=== PATIENT | male | born 1960 | race Caucasian/White ===

== ENCOUNTER 2017-01-04 09:51 | Inpatient (IN) | payer MEDICARE, BC ==
[2017-01-04] MEDS ORDERED: SODIUM CHLORIDE 0.9% 1,000 ML IV STA ×2 (10:04)
[2017-01-04] MEDS ORDERED: SODIUM CHLORIDE 0.9% 500 ML IV STA (10:04)
[2017-01-04] MEDS ORDERED: IPRATROPIUM-ALBUTEROL 3 ML NEB INHALATION STA (10:10)
[2017-01-04] MEDS ORDERED: KETOROLAC 30 MG/ML 1 ML VIAL IVP STA (10:10)
[2017-01-04] MEDS ORDERED: ACETAMINOPHEN IV (For NPO) 1,000 MG in EMPTY BAG 1 BAG IVPB STA (10:10)
--- NOTE | 2017-01-04 10:29 | ED ---
General Adult HPI - General Chief complaint: Chest Pain Stated complaint: johanne, rt side, chest pain Time Seen by Provider: 01/04/17 09:58 Source: patient, RN notes reviewed, old records reviewed Mode of arrival: ambulatory Limitations: no limitations - History of Present Illness Initial comments: This is a 56-year-old male here for evaluation shows of breath cough and congestion. Chest pain with deep breath and shortness of breath. Patient has a medical history significant for diabetes hypertension, patient coming in the ER for evaluation. Also noted to be febrile. Patient states she's felt warm with chills starting last night into today. Symptoms are worsening charas of breath and coughing and drinking increasing. No modifying factors for symptoms at home. No recent hospitalizations - Related Data Home Medications Medication Instructions Recorded Confirmed Baclofen [Lioresal] 10 mg PO TID PRN 06/12/16 01/04/17 Lisinopril 40 mg PO DAILY 06/12/16 01/04/17 Kenton-3 Fatty Acids [K[place]-3] 2,000 mg PO DAILY 06/12/16 01/04/17 Omeprazole 20 mg PO DAILY PRN 06/12/16 01/04/17 Simvastatin [Zocor] 20 mg PO HS 06/12/16 01/04/17 clonazePAM [KlonoPIN] 0.5 mg PO BID PRN 06/12/16 01/04/17 metFORMIN HCL [Glucophage] 500 mg PO DAILY 06/12/16 01/04/17 Allergies Allergy/AdvReac Type Severity Reaction Status Date / Time nitroglycerin AdvReac Rapid Verified 01/04/17 10:05 [From Nitrostat] Heart Rate Review of Systems ROS Statement: Those systems with pertinent positive or pertinent negative responses have been documented in the HPI. ROS Other: All systems not noted in ROS Statement are negative. Past Medical History Past Medical History: Diabetes Mellitus, GERD/Reflux, Hyperlipidemia, Hypertension, Sleep Apnea/CPAP/BIPAP Additional Past Medical History / Comment(s): recently having dysphagia to solid foods-fine now, uses CPAP, back problems History of Any Multi-Drug Resistant Organisms: None Reported Past Surgical History: Hernia Repair, Orthopedic Surgery Additional Past Surgical History / Comment(s): arthroscopy knee, EGD, colonoscopy Past Anesthesia/Blood Transfusion Reactions: No Reported Reaction Past Psychological History: Panic Disorder Smoking Status: Former smoker Past Alcohol Use History: None Reported Additional Past Alcohol Use History / Comment(s): quit smoking 20 yrs ago, smoked 1ppd for 20 yrs. Past Drug Use History: None Reported - Past Family History Mother Family Medical History: Cancer Father Family Medical History: Cancer General Exam Limitations: no limitations General appearance: alert, in no apparent distress, anxious Head exam: Present: atraumatic, normocephalic, normal inspection Eye exam: Present: normal appearance, PERRL, EOMI. Absent: scleral icterus, conjunctival injection, periorbital swelling ENT exam: Present: normal exam, mucous membranes moist Neck exam: Present: normal inspection. Absent: tenderness, meningismus, lymphadenopathy Respiratory exam: Present: normal lung sounds bilaterally, rhonchi, decreased breath sounds, prolonged expiratory. Absent: respiratory distress, wheezes, rales, stridor Cardiovascular Exam: Present: normal rhythm, tachycardia, normal heart sounds. Absent: systolic murmur, diastolic murmur, rubs, gallop, clicks GI/Abdominal exam: Present: soft, normal bowel sounds. Absent: distended, tenderness, guarding, rebound, rigid Extremities exam: Present: normal inspection, full ROM, normal capillary refill. Absent: tenderness, pedal edema, joint swelling, calf tenderness Back exam: Present: normal inspection Neurological exam: Present: alert, oriented X3, CN II-XII intact Psychiatric exam: Present: normal affect, normal mood Skin exam: Present: warm, dry, intact, normal color. Absent: rash Course Vital Signs 01/04/17 01/04/17 01/04/17 09:59 10:47 10:54 Temperature 100.6 F H Pulse Rate 129 H 121 H 120 H Respiratory 18 Rate Blood Pressure 119/78 O2 Sat by Pulse 96 Oximetry - Reevaluation(s) Reevaluation #1: 01/04/17 12:08 Was symptomatically therapy patient is much improved EKG Findings - EKG Comments: EKG Findings:: EKG shows sinus tachycardia rate of 127, [place] 140, QRS 80, QTC 4:30 Medical Decision Making - Medical Decision Making 56 year with fever cough congestion and shortness of breath. Positive pneumonia , patient be admitted for IV antibiotics and monitoring of respiratory status and fever control. IV hydration and resuscitation - Lab Data Result diagrams: 01/04/17 10:25 01/04/17 10:25 Lab Results 01/04/17 01/04/17 01/04/17 Range/Units 10:25 10:25 10:25 WBC 11.1 H (3.8-10.6) k/uL RBC 5.14 (4.30-5.90) m/uL Hgb 14.6 (13.0-17.5) gm/dL Hct 42.9 (39.0-53.0) % MCV 83.5 (80.0-100.0) fL MCH 28.4 (25.0-35.0) pg MCHC 34.0 (31.0-37.0) g/dL RDW 12.4 (11.5-15.5) % Plt Count 252 (150-450) k/uL Neutrophils % 75 % Lymphocytes % 14 % Monocytes % 6 % Eosinophils % 2 % Basophils % 1 % Neutrophils # 8.4 H (1.3-7.7) k/uL Lymphocytes # 1.6 (1.0-4.8) k/uL Monocytes # 0.7 (0-1.0) k/uL Eosinophils # 0.2 (0-0.7) k/uL Basophils # 0.1 (0-0.2) k/uL PT (9.0-12.0) sec INR (<1.1) APTT (22.0-30.0) sec D-Dimer (<0.60) mg/L FEU Sodium 141 (137-145) mmol/L Potassium 4.0 (3.5-5.1) mmol/L Chloride 102 (98-107) mmol/L Carbon Dioxide 24 (22-30) mmol/L Anion Gap 15 mmol/L BUN 13 (9-20) mg/dL Creatinine 0.96 (0.66-1.25) mg/dL Est GFR (MDRD) Af Amer >60 (>60 ml/min/1.73 sqM) Est GFR (MDRD) Non-Af >60 (>60 ml/min/1.73 sqM) Glucose 143 H (74-99) mg/dL Calcium 9.2 (8.4-10.2) mg/dL Magnesium 1.7 (1.6-2.3) mg/dL Total Bilirubin 1.1 (0.2-1.3) mg/dL AST 29 (17-59) U/L ALT 48 (21-72) U/L Alkaline Phosphatase 98 (38-126) U/L Total Creatine Kinase 60 (55-170) U/L CK-MB (CK-2) <0.2 (0.0-2.4) ng/mL CK-MB (CK-2) Rel Index Troponin I <0.012 (0.000-0.034) ng/mL NT-Pro-B Natriuret Pep pg/mL Total Protein 7.6 (6.3-8.2) g/dL Albumin 4.1 (3.5-5.0) g/dL Influenza Type A RNA (Not Detectd) Influenza Type B (PCR) (Not Detectd) 01/04/17 01/04/17 01/04/17 Range/Units 10:25 10:25 10:25 WBC (3.8-10.6) k/uL RBC (4.30-5.90) m/uL Hgb (13.0-17.5) gm/dL Hct (39.0-53.0) % MCV (80.0-100.0) fL MCH (25.0-35.0) pg MCHC (31.0-37.0) g/dL RDW (11.5-15.5) % Plt Count (150-450) k/uL Neutrophils % % Lymphocytes % % Monocytes % % Eosinophils % % Basophils % % Neutrophils # (1.3-7.7) k/uL Lymphocytes # (1.0-4.8) k/uL Monocytes # (0-1.0) k/uL Eosinophils # (0-0.7) k/uL Basophils # (0-0.2) k/uL PT 11.3 (9.0-12.0) sec INR 1.1 (<1.1) APTT 22.6 (22.0-30.0) sec D-Dimer 5.40 H (<0.60) mg/L FEU Sodium (137-145) mmol/L Potassium (3.5-5.1) mmol/L Chloride (98-107) mmol/L Carbon Dioxide (22-30) mmol/L Anion Gap mmol/L BUN (9-20) mg/dL Creatinine (0.66-1.25) mg/dL Est GFR (MDRD) Af Amer (>60 ml/min/1.73 sqM) Est GFR (MDRD) Non-Af (>60 ml/min/1.73 sqM) Glucose (74-99) mg/dL Calcium (8.4-10.2) mg/dL Magnesium (1.6-2.3) mg/dL Total Bilirubin (0.2-1.3) mg/dL AST (17-59) U/L ALT (21-72) U/L Alkaline Phosphatase (38-126) U/L Total Creatine Kinase (55-170) U/L CK-MB (CK-2) (0.0-2.4) ng/mL CK-MB (CK-2) Rel Index Troponin I (0.000-0.034) ng/mL NT-Pro-B Natriuret Pep 59 pg/mL Total Protein (6.3-8.2) g/dL Albumin (3.5-5.0) g/dL Influenza Type A RNA Not Detected (Not Detectd) Influenza Type B (PCR) Not Detected (Not Detectd) - Radiology Data Radiology results: report reviewed (Chest x-ray and CT a is negative for PE positive for pneumonia), image reviewed Disposition Clinical Impression: Atypical chest pain, Community acquired pneumonia, Fever Disposition: ADMITTED IP TO THIS HOSP Condition: Fair Referrals: Jazmin Marquis DO [Primary Care Provider] - 1-2 days
[2017-01-04 10:37] LABS: Basophils # (A) 0.1 k/uL (0-0.2); Basophils % (A) 1 %; CH 28.9; CHCM 34.7; Eosinophils # (A) 0.2 k/uL (0-0.7); Eosinophils % (A) 2 %; HCT 42.9 % (39.0-53.0); HDW 2.56; HGB 14.6 gm/dL (13.0-17.5); Luc % (Auto) 2; Lymphocytes # (A) 1.6 k/uL (1.0-4.8); Lymphocytes % (A) 14 %; MCH 28.4 pg (25.0-35.0); MCV 83.5 fL (80.0-100.0); Mean Platelet Volume 6.7; Monocytes # (A) 0.7 k/uL (0-1.0); Monocytes % (A) 6 %; Neutrophils # (A) 8.4 k/uL (1.3-7.7); Neutrophils % (A) 75 %; RBC 5.14 m/uL (4.30-5.90); RDW 12.4 % (11.5-15.5); WBC 11.1 k/uL (3.8-10.6); WBC (Perox) 11.57
[2017-01-04 10:48] LABS: ALT 48 U/L (21-72); AST 29 U/L (17-59); Alkaline Phosphatase 98 U/L (38-126); Anion Gap 15 mmol/L; Blood Urea Nitrogen 13 mg/dL (9-20); Calcium 9.2 mg/dL (8.4-10.2); Carbon Dioxide 24 mmol/L (22-30); Chloride 102 mmol/L (98-107); Glucose 143 mg/dL (74-99); Magnesium 1.7 mg/dL (1.6-2.3); Non-African American GFR(MDRD) >60 (>60 ml/min/1.73 sqM); Sodium 141 mmol/L (137-145); Total Bilirubin 1.1 mg/dL (0.2-1.3); Total Protein 7.6 g/dL (6.3-8.2)
--- NOTE | 2017-01-04 10:54 | XR ---
EXAMINATION TYPE: XR chest 2V DATE OF EXAM: 01/04/2017 10:44 AM COMPARISON: NONE HISTORY: Difficulty breathing, right-sided chest pain TECHNIQUE: Frontal and lateral views of the chest are obtained. FINDINGS: There is blunting of the right costophrenic angle. No pneumothorax. Cardiomediastinal silh ouette within normal limits. Left lung is clear. IMPRESSION: Findings may represent sympathetic effusion and associated atelectasis on the right, cor relate to exclude pneumonia, follow-up recommended
[2017-01-04 10:57] LABS: INR 1.1 (<1.1)
[2017-01-04 10:58] LABS: Creatine Kinase 60 U/L (55-170); Partial Thromboplastin Time 22.6 sec (22.0-30.0); Prothrombin Time 11.3 sec (9.0-12.0)
[2017-01-04] MEDS ORDERED: RX INFO: IV CONTRAST WAS GIVEN 1 EACH MISC MISCELLANE PRN (10:59)
[2017-01-04 11:11] LABS: Creatine Kinase MB <0.2 ng/mL (0.0-2.4); Troponin I <0.012 ng/mL (0.000-0.034)
--- NOTE | 2017-01-04 11:54 | CT ---
EXAMINATION TYPE: CT angio chest DATE OF EXAM: 01/04/2017 11:39 AM COMPARISON: Chest x-ray same date HISTORY: PE, Right sided chest pain, Hemoptysis CT DLP: 410.40 mGycm Automated exposure control for dose reduction was used. CONTRAST: CTA scan of the thorax is performed with IV Contrast, patient injected with 100 ml mL of Omnipaque 35 0, pulmonary embolism protocol. MIP images are created and reviewed. 3D reconstructed images are cr eated on an independent workstation and reviewed. FINDINGS: LUNGS: There are some air bronchograms present in the posterior costophrenic angle on the right and a long the right hemidiaphragm. No pleural or pericardial effusion. AORTA: Aortic root measures 3.7 cm, borderline increased in size, no evident dissection MEDIASTINUM: The contrast bolus is suboptimal to exclude pulmonary embolism. Retrocaval pretracheal n ode is enlarged as is right hilar nodes and may be reactive. OTHER: The liver shows low attenuation likely due to fatty infiltration. Left lobe is somewhat heter ogeneous in density, there may be underlying mass or abscess. IMPRESSION: FINDINGS NOTED ON PATIENT'S PLAIN FILM MAY REPRESENT BASILAR ATELECTASIS, CORRELATE FOR POSSIBLE P NEUMONIA. SUBOPTIMAL EXAM TO EXCLUDE PULMONARY EMBOLISM. Abnormal left lobe of the liver is suspected , correlate for possible abscess or mass.
[2017-01-04] MEDS ORDERED: PNEUMONIA PROTOCOL UTILIZED 1 EACH MISC PO PRN (12:06)
[2017-01-04] MEDS ORDERED: LEVOFLOXACIN 750MG-D5W PMX 750 MG in DEXTROSE/WATER 1 150ML.BAG IVPB STA (12:06)
[2017-01-04] MEDS ORDERED: PIPERACILLIN-TAZOBACTAM 3.375 GM in DEXTROSE/WATER 1 50ML.BAG IVPB STA (12:06)
[2017-01-04] MEDS ORDERED: ONDANSETRON 4 MG/2 ML VIAL IVP PRN (13:08)
[2017-01-04] MEDS ORDERED: IPRATROPIUM-ALBUTEROL 3 ML NEB INHALATION PRN (13:08)
[2017-01-04] MEDS ORDERED: MORPHINE SULFATE 2 MG/ML SYRINGE IVP PRN (13:08)
[2017-01-04] MEDS ORDERED: ACETAMINOPHEN TAB 325 MG TAB PO PRN (13:08)
[2017-01-04] MEDS ORDERED: BACLOFEN 10 MG TAB PO PRN (13:09)
[2017-01-04] MEDS ORDERED: Magnesium Replacement Protocol 1 EACH MISC MISCELLANE PRN (13:09)
[2017-01-04] MEDS ORDERED: Potassium Replacement Protocol 1 EACH MISC MISCELLANE PRN (13:09)
[2017-01-04] MEDS ORDERED: PANTOPRAZOLE 40 MG TABLET PO PRN (13:09)
[2017-01-04] MEDS ORDERED: ATORVASTATIN 10 MG TAB PO SCH (13:15)
[2017-01-04 13:51] VITALS: BMI 32.3
--- NOTE | 2017-01-04 14:42 | P.HPIM ---
History of Present Illness H&P Date: 01/04/17 Chief Complaint: Right-sided pain This is a 56-year-old gentleman with past medical history noted below who presented to the emergency room with a right-sided pain. Patient said that his pain is mostly in the right upper quadrant and right flank area. He said that the pain started all of a sudden this morning. He is rating his pain as 10 out of 10 in severity. He said that the pain was associated with shortness of breath and diaphoresis. He was very concerned that he called EMS. He said that he was doing fairly well prior. He reports having normal bowel movements and good appetite. He denies any chest pain in particular. He said this pain is mostly on the right side and right flank area. He was evaluated in the emergency room and was noted to have a significantly elevated d-dimer. He was also found to be septic on presentation. CT angiogram was ordered but unfortunately was a suboptimal study to rule out pulmonary emboli. There is a concern about an attenuation in the liver suspecting possible abscess. Patient was admitted to the hospital for further evaluation. Review of Systems Review of system: 14 points review of systems were obtained and were negative except to what were mentioned in the HPI. Past Medical History Past Medical History: Diabetes Mellitus, GERD/Reflux, Hyperlipidemia, Hypertension, Sleep Apnea/CPAP/BIPAP Additional Past Medical History / Comment(s): recently having dysphagia to solid foods-fine now, uses CPAP, back problems History of Any Multi-Drug Resistant Organisms: None Reported Past Surgical History: Hernia Repair, Orthopedic Surgery Additional Past Surgical History / Comment(s): arthroscopy knee, EGD, colonoscopy Past Anesthesia/Blood Transfusion Reactions: No Reported Reaction Past Psychological History: Panic Disorder Smoking Status: Former smoker Past Alcohol Use History: None Reported Additional Past Alcohol Use History / Comment(s): quit smoking 20 yrs ago, smoked 1ppd for 20 yrs. Past Drug Use History: None Reported - Past Family History Mother Family Medical History: Cancer Father Family Medical History: Cancer Medications and Allergies Home Medications Medication Instructions Recorded Confirmed Type Baclofen [Lioresal] 10 mg PO TID PRN 06/12/16 01/04/17 History Lisinopril 40 mg PO DAILY 06/12/16 01/04/17 History [place]-3 Fatty Acids [Av[place]-3] 2,000 mg PO DAILY 06/12/16 01/04/17 History Omeprazole 20 mg PO DAILY PRN 06/12/16 01/04/17 History Simvastatin [Zocor] 20 mg PO Q72H 06/12/16 01/04/17 History clonazePAM [KlonoPIN] 0.5 mg PO BID PRN 06/12/16 01/04/17 History metFORMIN HCL [Glucophage] 500 mg PO DAILY 06/12/16 01/04/17 History Desvenlafaxine Succinate [Pristiq 50 mg PO DAILY 01/04/17 01/04/17 History ER] Ergocalciferol (Vitamin D2) 50,000 unit PO Q28D 01/04/17 01/04/17 History [Vitamin D2] Tamsulosin HCl [Flomax] 0.4 mg PO DAILY 01/04/17 01/04/17 History Allergies Allergy/AdvReac Type Severity Reaction Status Date / Time nitroglycerin AdvReac Rapid Verified 01/04/17 12:38 [From Nitrostat] Heart Rate Physical Exam Vitals: Intake and Output 01/03/17 01/04/17 01/04/17 22:59 06:59 14:59 Other: Weight 102.058 kg Patient Weight 01/05/17 06:59 Weight 102.058 kg General: The patient is awake and alert, in no distress, and does not appear acutely ill. Eye: extra-ocular movements are intact; there is normal conjunctiva bilaterally. . Neck: The neck is supple, there is no tenderness or JVD. Cardiovascular: Normal S1-S2, no S3-S4, no murmurs. Respiratory: Lungs clear to auscultation bilaterally with no wheezes rhonchi or rales. Gastrointestinal: Abdomen is soft, nontender, nondistended, with no organomegaly. . Musculoskeletal: Normal ROM, no tenderness, There is no pedal edema. Neurological: There are no obvious motor or sensory deficits. Speech is normal. Skin: Skin is warm and dry and no rashes or lesions are noted. Results CBC & Chem 7: 01/04/17 10:25 01/04/17 10:25 Thrombosis Risk Factor Assmnt - Choose All That Apply Each Factor Represents 1 point: Age 41-60 years Other Risk Factors: No Other congenital or acquired thrombophilia - If yes, enter type in comment: No Thrombosis Risk Factor Assessment Total Risk Factor Score: 1 Thrombosis Risk Factor Assessment Level: Low Risk Assessment and Plan Plan: 1. Elevated d-dimer: CT angiogram was suboptimal study to rule out PE. I would obtain VQ scan and bilateral Doppler of the lower extremity to rule out any DVT 2. Suspected liver abscess on computed tomography scan of the chest: I would obtain liver ultrasound for further evaluation. 3. Sepsis on presentation: With fever and tachycardia. Concern about intra- abdominal source of infection. Continue broad spectrum antibiotic with Zosyn and Levaquin for now. Awaiting blood culture. Continue IV fluid hydration. 4. History of chronic cholecystitis with abnormal HIDA scan in June 2016 5. Essential hypertension: Blood pressure well-controlled 6. Type 2 diabetes mellitus: Hold metformin and continue sliding scale insulin 7. Mixed hyperlipidemia 8. DVT prophylaxis Continue supportive care otherwise. IV fluid hydration. Pain medication and antiemetic as needed. Repeat lab work in the morning. Appreciate cognos consultant's recommendations.
[2017-01-04] MEDS: IPRATROPIUM-ALBUTEROL 3 ML NEB INHALATION SCH ×2 (15:06→19:02)
--- NOTE | 2017-01-04 15:12 | US ---
EXAMINATION TYPE: US venous doppler duplex LE BI DATE OF EXAM: 01/04/2017 2:52 PM COMPARISON: NONE CLINICAL HISTORY: dvt. SOB SIDE PERFORMED: Bilateral VESSELS IMAGED: External Iliac Vein (EIV) Common Femoral Vein Deep Femoral Vein Greater Saphenous Vein * Femoral Vein Popliteal Vein Small Saphenous Vein * Proximal Calf Veins (* superficial vessels) TECHNOLOGIST IMPRESSION: Right Leg: No evidence of DVT Left Leg: No evidence of DVT Satisfactory color flow, phasicity, compressibility is seen in the bilateral lower extremities at the above levels. IMPRESSION: No ultrasound evidence for acute DVT in either lower extremity.
--- NOTE | 2017-01-04 16:36 | NM ---
EXAMINATION TYPE: NM pul vent and perfuse DATE OF EXAM: 01/04/2017 4:17 PM COMPARISON: CTA chest from earlier today. HISTORY: Shortness of breath rule out pulmonary embolism TECHNIQUE: Utilizing inhalation of 70.9 mCi Tc 99m DTPA aerosol and intravenous injection of 5.39 mC i of Tc 99m MAA, ventilation and perfusion images are acquired post injection in multiple projections . FINDINGS: Normal radiotracer distribution is noted in the lungs. There is no evidence of mismatched defects. IMPRESSION: No scintigraphic evidence for pulmonary embolism.
[2017-01-04] MEDS ORDERED: INSULIN LISPRO (humaLOG) 300 UNIT/3 ML VIAL SQ SCH (17:30)
[2017-01-04 17:56] LABS: Glucose,Whole Blood 184 mg/dL (75-99)
[2017-01-04] MEDS: INSULIN LISPRO (humaLOG) 300 UNIT/3 ML VIAL SQ SCH ×2 (18:04→20:40)
[2017-01-04] MEDS: SODIUM CHLORIDE 0.9% 1,000 ML IV SCH ×2 (18:06→20:37)
[2017-01-04 19:38] LABS: Glucose,Whole Blood 177 mg/dL (75-99)
[2017-01-04 20:25] LABS: Appearance,Urine Clear (Clear); Bilirubin,Urine Negative (Negative); Glucose,Urine (UA) Negative (Negative); Ketones,Urine Negative (Negative); Leukocyte Esterase,Urine Negative (Negative); Nitrite,Urine Negative (Negative); Protein,Urine Negative (Negative); Specific Gravity,Urine 1.016 (1.001-1.035); UA Billing (MACRO vs. MICRO) CHEM; Urobilinogen,Urine <2.0 mg/dL (<2.0)
[2017-01-05 07:13] LABS: Glucose,Whole Blood 122 mg/dL (75-99)
[2017-01-05] MEDS: IPRATROPIUM-ALBUTEROL 3 ML NEB INHALATION SCH ×4 (08:10→19:40)
[2017-01-05] MEDS: INSULIN LISPRO (humaLOG) 300 UNIT/3 ML VIAL SQ SCH ×4 (08:32→20:51)
[2017-01-05] MEDS: SODIUM CHLORIDE 0.9% 1,000 ML IV SCH ×2 (08:33→10:16)
[2017-01-05] MEDS: DESVENLAFAXINE SUCCINATE 50 MG TAB.ER.24H PO SCH (08:33)
[2017-01-05] MEDS: LISINOPRIL 20 MG TAB PO SCH (08:34)
[2017-01-05] MEDS: TAMSULOSIN 0.4 MG CAP.ER.24H PO SCH (08:34)
--- NOTE | 2017-01-05 08:42 | XR ---
EXAMINATION TYPE: XR chest 2V DATE OF EXAM: 01/05/2017 8:05 AM COMPARISON: 01/04/2017 HISTORY: 56-year-old male follow-up pneumonia TECHNIQUE: Frontal and lateral views FINDINGS: Heart is normal size. Patchy right basilar opacity remains and shows minimal improvement. Strandy lef t basilar atelectasis. Trace right-sided effusion. IMPRESSION: Trace right pleural effusion with minimal improvement in adjacent atelectasis and/or infiltrate.
[2017-01-05] MEDS: ENOXAPARIN 40 MG/0.4 ML SYRINGE SQ SCH (09:16)
[2017-01-05] MEDS: clonazePAM 0.5 MG TAB PO PRN ×2 (10:20→20:48)
[2017-01-05 10:24] LABS: Basophils # (A) 0.1 k/uL (0-0.2); Basophils % (A) 1 %; CH 28.5; CHCM 32.9; Eosinophils # (A) 0.2 k/uL (0-0.7); Eosinophils % (A) 2 %; HGB 14.4 gm/dL (13.0-17.5); Luc # (Auto) 0.17; Luc % (Auto) 2; Lymphocytes % (A) 11 %; MCH 28.4 pg (25.0-35.0); MCHC 32.7 g/dL (31.0-37.0); Monocytes # (A) 0.5 k/uL (0-1.0); Monocytes % (A) 5 %; Neutrophils # (A) 7.2 k/uL (1.3-7.7); Neutrophils % (A) 79 %; RBC 5.06 m/uL (4.30-5.90); RDW 12.2 % (11.5-15.5); WBC 9.1 k/uL (3.8-10.6); WBC (Perox) 9.63
[2017-01-05 10:35] LABS: Anion Gap 12 mmol/L; Blood Urea Nitrogen 10 mg/dL (9-20); Calcium 8.9 mg/dL (8.4-10.2); Carbon Dioxide 25 mmol/L (22-30); Chloride 108 mmol/L (98-107); Glucose 153 mg/dL (74-99); Non-African American GFR(MDRD) >60 (>60 ml/min/1.73 sqM); Potassium 4.4 mmol/L (3.5-5.1); Sodium 145 mmol/L (137-145)
--- NOTE | 2017-01-05 11:24 | US ---
EXAMINATION TYPE: US liver DATE OF EXAM: 01/05/2017 7:57 AM COMPARISON: Correlation CT 01/04/2017 CLINICAL HISTORY: 56-year-old male with right upper quadrant pain, abscess?. TECHNIQUE: Multiple sonographic images of the right upper quadrant are obtained. FINDINGS: Liver Length: 17.8 cm Gallbladder Wall: 0.2 cm CBD: 0.5 cm Right Kidney: 12.2 x 4.6 x 5.4 cm TECHNOLOGIST IMPRESSION: Pancreas: Obscured by extensive overlying bowel gas Liver: Mildly enlarged, echogenic, and attenuating. There is an irregular mass with some internal vas cularity in the left hepatic lobe measuring up to 7.3 cm. There is a second mass superior to the gall bladder measuring 1.3 cm. Some small areas of hypoechogenicity along the gallbladder fossa suspected to represent focal fatty sparing. Gallbladder: No abnormal gallbladder distention, wall thickening, pericholecystic fluid, or shadowin g calculi. Evidence for sonographic Flannery's sign: no CBD: Within normal limits. IMPRESSION: 1. Hepatomegaly and marked hepatic steatosis. 2. Ultrasound findings are more suggestive of a 7.3 cm left liver lobe mass rather than abscess with differential considerations including HCC and metastatic disease. 3. A second smaller 1.3 cm liver mass superior to the gallbladder.
[2017-01-05 11:39] LABS: Hemoglobin A1C 6.5 % (4.2-6.1)
--- NOTE | 2017-01-05 11:42 | P.PN ---
Subjective Is a 56-year-old who presented with right-sided pain in the right upper quadrant and flank area. He's also been having some shortness of breath. Elevated d-dimer in the emergency room. CTA of the chest that showed suboptimal PE Doppler was negative for DVT and a V/Q was negative for PE. On CTA there was questionable pneumonia versus atelectasis as well as a possible liver abscess. Patient has been placed on antibiotics. Liver ultrasound showing 7.3 cm left liver lobe mass rather than abscess with a differential consideration awaiting HCC and metastatic disease. A second smaller 1.3 cm liver mass superior to the gallbladder. Patient reports his pain has shown improvement. Denies any chest pain or shortness of breath. Denies any nausea or vomiting. Did have bowel movement. Denies any difficulty urinating. Objective - Vital Signs Vital signs: Vital Signs Temp 98 F 01/05/17 07:00 Pulse 96 01/05/17 08:25 Resp 16 01/05/17 08:00 BP 138/78 01/05/17 07:00 Pulse Ox 96 01/05/17 07:00 Intake & Output 01/04/17 01/05/17 01/05/17 18:59 06:59 18:59 Intake Total 200 0 Output Total 700 Balance 200 -700 Weight 102.058 kg 102.058 kg Intake: Oral 200 0 Output: Urine 700 Other: Voiding Method Toilet - Exam Head normocephalic Neck supple Lungs clear to auscultation bilaterally no wheezing or crackles Heart regular rate and rhythm S1-S2, no rub or gallop Abdomen is soft tender along the right side nondistended positive bowel sounds no hepatosplenomegaly Extremities no edema Neuro alert and orientated to 3 - Labs CBC & Chem 7: 01/05/17 09:50 01/05/17 09:50 Labs: Abnormal Lab Results - Last 24 Hours (Table) 01/04/17 01/04/17 01/05/17 Range/Units 17:53 19:37 06:45 Chloride (98-107) mmol/L Glucose (74-99) mg/dL POC Glucose (mg/dL) 184 H 177 H 122 H (75-99) mg/dL 01/05/17 Range/Units 09:50 Chloride 108 H (98-107) mmol/L Glucose 153 H (74-99) mg/dL POC Glucose (mg/dL) (75-99) mg/dL Assessment and Plan Plan: 1. Right-sided abdominal pain with possible liver mass. Ultrasound is suggestive of a 7.3 cm left liver lobe mass rather than abscess. Also a second smaller 1.3 cm liver mass superior to the gallbladder. Awaiting surgical evaluation 3. Sepsis on presentation: With fever and tachycardia. Concern about intra- abdominal source of infection. Continue broad spectrum antibiotic with Zosyn and Levaquin for now. Awaiting blood culture. Continue IV fluid hydration. 4. History of chronic cholecystitis with abnormal HIDA scan in June 2016. 5. Essential hypertension: Blood pressure well-controlled 6. Type 2 diabetes mellitus: Hold metformin and continue sliding scale insulin 7. Mixed hyperlipidemia 8. DVT prophylaxis 9. Chest x-ray showing atelectasis will start incentive spirometer. Denies any cough. 10. Generalized anxiety disorder: Start Xanax 0.25 mg twice a day as needed Decrease fluids to 50 mL an hour
[2017-01-05 11:45] LABS: Glucose,Whole Blood 117 mg/dL (75-99)
[2017-01-05] MEDS: LEVOFLOXACIN 750MG-D5W PMX 750 MG in DEXTROSE/WATER 1 150ML.BAG IVPB SCH (11:52)
[2017-01-05] MEDS: ALPRAZolam 0.25 MG TAB PO PRN ×2 (15:09→22:31)
--- NOTE | 2017-01-05 15:49 | P.GSCN ---
History of Present Illness Consult date: 01/05/17 Reason for Consult: Possible liver abscess. Right upper quadrant pain. Requesting physician: Cisco Magana History of present illness: The patient is a 56-year-old white male with sudden onset of pain in the right upper quadrant area associated with the some hemoptysis and pain in the pets. No definite nausea or vomiting. He states the pain was a 10 on a scale 1-10. Since his hospitalization he is feeling a lot better in fact he has no pain today. Once to go home. His CT angiogram was optimal for a mass in the liver with possible abscess. An ultrasound today showed 2 liver masses and the possibility of neoplasm was entertained. No definite abscess. Gallbladder looked fairly normal coming or fluid around the gallbladder. Denies any weight loss. Did have a colonoscopy and EGD last year was unremarkable except for hiatal hernia. He had a HIDA scan in June of last year that apparently showed a low ejection fraction and he was recommended a laparoscopic cholecystectomy by Dr. Abernathy. Past history family history social history were reviewed and well-documented. Both his parents had cancers. He has a history of diabetes mellitus arthritis hernia repair. Social history positive for smoking about 20 years but he quit many years ago. Systems review as above. No definite chest pain. One episode of hemoptysis. No dizzy spells. No major change in his bowel habits or blood in his stool or urinary symptoms. On examination the patient is awake alert and oriented in no distress. Anxious to go home. He is afebrile. Vitals stable. Color and hydration are good. Heart and lungs are clear. Abdomen is soft nontender no masses or organomegaly or hernias noted. Extremities normal INTERIOR DECORATOR intact.. Ultrasound is reviewed including CTA. The ultrasound shows breast a mass in the left lobe of the liver 7.3 cm in diameter looked somewhat solid. Also a smaller mass of the gallbladder fossa. Otherwise looks normal. Lab work was reviewed. Impression mass in the left lobe of liver suspicious for metastatic disease. Recent right upper quadrant pain and hemoptysis. No evidence of pulmonary embolus radiographically. Recommendation recommend ultrasound-guided liver biopsy. but will need to be off his anticoagulants for few days. Past Medical History Past Medical History: Diabetes Mellitus, GERD/Reflux, Hyperlipidemia, Hypertension, Sleep Apnea/CPAP/BIPAP Additional Past Medical History / Comment(s): recently having dysphagia to solid foods-fine now, uses CPAP, back problems History of Any Multi-Drug Resistant Organisms: None Reported Past Surgical History: Hernia Repair, Orthopedic Surgery Additional Past Surgical History / Comment(s): arthroscopy knee, EGD, colonoscopy Past Anesthesia/Blood Transfusion Reactions: No Reported Reaction Past Psychological History: Panic Disorder Smoking Status: Former smoker Past Alcohol Use History: None Reported Additional Past Alcohol Use History / Comment(s): quit smoking 20 yrs ago, smoked 1ppd for 20 yrs. Past Drug Use History: None Reported - Past Family History Mother Family Medical History: Cancer Father Family Medical History: Cancer Medications and Allergies Home Medications Medication Instructions Recorded Confirmed Type Baclofen [Lioresal] 10 mg PO TID PRN 06/12/16 01/04/17 History Lisinopril 40 mg PO DAILY 06/12/16 01/04/17 History [place]-3 Fatty Acids [[place]-3] 2,000 mg PO DAILY 06/12/16 01/04/17 History Omeprazole 20 mg PO DAILY PRN 06/12/16 01/04/17 History Simvastatin [Zocor] 20 mg PO Q72H 06/12/16 01/04/17 History clonazePAM [KlonoPIN] 0.5 mg PO BID PRN 06/12/16 01/04/17 History metFORMIN HCL [Glucophage] 500 mg PO DAILY 06/12/16 01/04/17 History Desvenlafaxine Succinate [Pristiq 50 mg PO DAILY 01/04/17 01/04/17 History ER] Ergocalciferol (Vitamin D2) 50,000 unit PO Q28D 01/04/17 01/04/17 History [Vitamin D2] Tamsulosin HCl [Flomax] 0.4 mg PO DAILY 01/04/17 01/04/17 History Allergies Allergy/AdvReac Type Severity Reaction Status Date / Time nitroglycerin AdvReac Rapid Verified 01/04/17 12:38 [From Nitrostat] Heart Rate Surgical - Exam Vital Signs Temp Pulse Resp BP Pulse Ox 100.6 F H 129 H 18 119/78 96 01/04/17 09:59 01/04/17 09:59 01/04/17 09:59 01/04/17 09:59 01/04/17 09:59 Results - Labs 01/05/17 09:50 01/05/17 09:50 Abnormal Lab Results - Last 24 Hours (Table) 01/04/17 01/04/17 01/05/17 Range/Units 17:53 19:37 06:45 Chloride (98-107) mmol/L Glucose (74-99) mg/dL POC Glucose (mg/dL) 184 H 177 H 122 H (75-99) mg/dL Hemoglobin A1c (4.2-6.1) % 01/05/17 01/05/17 01/05/17 Range/Units 09:50 09:50 11:42 Chloride 108 H (98-107) mmol/L Glucose 153 H (74-99) mg/dL POC Glucose (mg/dL) 117 H (75-99) mg/dL Hemoglobin A1c 6.5 H (4.2-6.1) % Diabetes panel 01/05/17 01/05/17 Range/Units 09:50 09:50 Sodium 145 (137-145) mmol/L Potassium 4.4 (3.5-5.1) mmol/L Chloride 108 H (98-107) mmol/L Carbon Dioxide 25 (22-30) mmol/L BUN 10 (9-20) mg/dL Creatinine 0.91 (0.66-1.25) mg/dL Glucose 153 H (74-99) mg/dL Hemoglobin A1c 6.5 H (4.2-6.1) % Calcium 8.9 (8.4-10.2) mg/dL Calcium panel 01/05/17 Range/Units 09:50 Calcium 8.9 (8.4-10.2) mg/dL Pituitary panel 01/05/17 Range/Units 09:50 Sodium 145 (137-145) mmol/L Potassium 4.4 (3.5-5.1) mmol/L Chloride 108 H (98-107) mmol/L Carbon Dioxide 25 (22-30) mmol/L BUN 10 (9-20) mg/dL Creatinine 0.91 (0.66-1.25) mg/dL Glucose 153 H (74-99) mg/dL Calcium 8.9 (8.4-10.2) mg/dL Adrenal panel 01/05/17 Range/Units 09:50 Sodium 145 (137-145) mmol/L Potassium 4.4 (3.5-5.1) mmol/L Chloride 108 H (98-107) mmol/L Carbon Dioxide 25 (22-30) mmol/L BUN 10 (9-20) mg/dL Creatinine 0.91 (0.66-1.25) mg/dL Glucose 153 H (74-99) mg/dL Calcium 8.9 (8.4-10.2) mg/dL
[2017-01-05 17:16] LABS: Glucose,Whole Blood 127 mg/dL (75-99)
[2017-01-05 21:15] LABS: Glucose,Whole Blood 130 mg/dL (75-99)
[2017-01-06] MEDS: SODIUM CHLORIDE 0.9% 1,000 ML IV SCH (04:00)
[2017-01-06] MEDS: ENOXAPARIN 40 MG/0.4 ML SYRINGE SQ SCH (06:54)
[2017-01-06] MEDS: IPRATROPIUM-ALBUTEROL 3 ML NEB INHALATION SCH ×2 (07:03→10:45)
[2017-01-06 07:22] LABS: Glucose,Whole Blood 109 mg/dL (75-99)
[2017-01-06 07:25] VITALS: TEMP 98.4
[2017-01-06 07:53] LABS: Basophils # (A) 0.1 k/uL (0-0.2); Basophils % (A) 1 %; CH 28.8; Eosinophils # (A) 0.4 k/uL (0-0.7); Eosinophils % (A) 4 %; HCT 43.2 % (39.0-53.0); HDW 2.51; HGB 14.3 gm/dL (13.0-17.5); Luc # (Auto) 0.19; Luc % (Auto) 2; Lymphocytes # (A) 1.8 k/uL (1.0-4.8); Lymphocytes % (A) 21 %; MCV 87.7 fL (80.0-100.0); Mean Platelet Volume 7.4; Monocytes # (A) 0.5 k/uL (0-1.0); Monocytes % (A) 6 %; Neutrophils # (A) 5.6 k/uL (1.3-7.7); Neutrophils % (A) 66 %; RBC 4.93 m/uL (4.30-5.90); RDW 12.3 % (11.5-15.5); WBC 8.6 k/uL (3.8-10.6); WBC (Perox) 9.08
[2017-01-06 07:56] LABS: INR 1.2 (<1.1); Prothrombin Time 11.9 sec (9.0-12.0)
[2017-01-06] MEDS: INSULIN LISPRO (humaLOG) 300 UNIT/3 ML VIAL SQ SCH ×2 (07:56→11:38)
[2017-01-06] MEDS: DESVENLAFAXINE SUCCINATE 50 MG TAB.ER.24H PO SCH (07:58)
[2017-01-06 08:17] LABS: Anion Gap 11 mmol/L; Blood Urea Nitrogen 9 mg/dL (9-20); Calcium 9.1 mg/dL (8.4-10.2); Carbon Dioxide 27 mmol/L (22-30); Chloride 108 mmol/L (98-107); Glucose 118 mg/dL (74-99); Magnesium 2.1 mg/dL (1.6-2.3); Non-African American GFR(MDRD) >60 (>60 ml/min/1.73 sqM); Potassium 4.6 mmol/L (3.5-5.1); Sodium 146 mmol/L (137-145)
[2017-01-06] MEDS: LISINOPRIL 20 MG TAB PO SCH (09:50)
[2017-01-06] MEDS: TAMSULOSIN 0.4 MG CAP.ER.24H PO SCH (09:50)
[2017-01-06] MEDS: ALPRAZolam 0.25 MG TAB PO PRN (09:50)
--- NOTE | 2017-01-06 10:23 | P.CONS ---
History of Present Illness - Reason for Consult Consult date: 01/06/17 Liver mass Requesting physician: Jluis Black - History of Present Illness 56-year-old gentleman patient Dr. Marquis with a past medical history of diabetes mellitus, GERD, hyperlipidemia, hypertension, sleep apnea. Patient presents with dyspnea and small amount of hemoptysis. Consultation requested for liver mass. Liver chemistries within normal limits. CEA 1.3. AFP and hepatitis panel pending. No history of known liver disorders, hepatitis, or alcoholism. Intermittent abdominal discomfort over the last few months. Patient underwent EGD evaluation 6 months ago and reported to be within normal limits. Last colonoscopy to his memory was a few years ago. He was supposed follow-up with surgeon for possible cholecystectomy for an abnormal HIDA scan 6 months ago. Denies weight loss, jaundice, changes in the color of his urine or bowel movements. Liver ultrasound reported irregular mass with internal vascularity in the left hepatic lobe measuring up to 7.3 cm. Second mass superior to the gallbladder measuring 1.3 cm. No abnormal gallbladder distention, wall thickening, pericholecystic fluid, or calculi. CBD 0.5 cm. Gallbladder wall 0.2 cm. Liver length 17.[address] chest negative for PE possible pneumonia. Lower extremity ultrasound negative for DVT. Review of Systems Constitutional: Denies fever, chills, sweats, weight gain, or loss. HEENT: Negative for migraines, blurred vision or loss, earaches, drainage, tinnitus, oral mucosal lesions, dysphagia, or odynophagia. Cardiac: Hypertension. Hyperlipidemia. Negative for chest pain, arrhythmias, or palpitation. Respiratory: Sleep apnea. Negative for shortness of breath, hemoptysis, cough, or sputum production. Gastrointestinal: See HPI for pertinent findings. Genitourinary: Negative for hematuria, urgency, frequency, polyuria, dysuria, or penile discharge. Musculoskeletal: Negative for muscle aches, swelling, arthritis, and arthralgias. Neurologic: Negative for stroke or TIA. Endocrine: Diabetes mellitus. Negative for thyroid problems. Skin: Negative for rash or itching. Psychiatric: Negative history for depression and anxiety All systems: negative (See HPI) Past Medical History Past Medical History: Diabetes Mellitus, GERD/Reflux, Hyperlipidemia, Hypertension, Sleep Apnea/CPAP/BIPAP Additional Past Medical History / Comment(s): recently having dysphagia to solid foods-fine now, uses CPAP, back problems History of Any Multi-Drug Resistant Organisms: None Reported Past Surgical History: Hernia Repair, Orthopedic Surgery Additional Past Surgical History / Comment(s): arthroscopy knee, EGD, colonoscopy Past Anesthesia/Blood Transfusion Reactions: No Reported Reaction Past Psychological History: Panic Disorder Smoking Status: Former smoker Past Alcohol Use History: None Reported Additional Past Alcohol Use History / Comment(s): quit smoking 20 yrs ago, smoked 1ppd for 20 yrs. Past Drug Use History: None Reported - Past Family History Mother Family Medical History: Cancer Father Family Medical History: Cancer Medications and Allergies Home Medications Medication Instructions Recorded Confirmed Type Baclofen [Lioresal] 10 mg PO TID PRN 06/12/16 01/04/17 History Lisinopril 40 mg PO DAILY 06/12/16 01/04/17 History [place]-3 Fatty Acids [[place]-3] 2,000 mg PO DAILY 06/12/16 01/04/17 History Omeprazole 20 mg PO DAILY PRN 06/12/16 01/04/17 History Simvastatin [Zocor] 20 mg PO Q72H 06/12/16 01/04/17 History clonazePAM [KlonoPIN] 0.5 mg PO BID PRN 06/12/16 01/04/17 History metFORMIN HCL [Glucophage] 500 mg PO DAILY 06/12/16 01/04/17 History Desvenlafaxine Succinate [Pristiq 50 mg PO DAILY 01/04/17 01/04/17 History ER] Ergocalciferol (Vitamin D2) 50,000 unit PO Q28D 01/04/17 01/04/17 History [Vitamin D2] Tamsulosin HCl [Flomax] 0.4 mg PO DAILY 01/04/17 01/04/17 History Allergies Allergy/AdvReac Type Severity Reaction Status Date / Time nitroglycerin AdvReac Rapid Verified 01/04/17 12:38 [From Nitrostat] Heart Rate Physical Exam Vitals: Vital Signs Temp Pulse Pulse Resp BP Pulse Ox 01/06/17 07:13 100 01/06/17 07:03 101 H 95 01/06/17 07:00 98.4 F 81 16 115/60 93 L 01/05/17 22:25 97.9 F 89 16 136/80 94 L 01/05/17 19:52 98 01/05/17 19:42 98 01/05/17 16:00 110 H 16 01/05/17 15:00 99 F 110 H 16 154/85 96 01/05/17 14:02 92 01/05/17 13:50 92 01/05/17 12:06 98 Intake and Output 01/05/17 01/06/17 01/06/17 22:59 06:59 14:59 Intake Total 550 400 Output Total 1260 Balance -710 400 Intake: Intake, IV Titration 150 400 Amount Sodium Chloride 0.9% 1, 150 400 000 ml @ 50 mls/hr IV . Q20H SERGO Rx#:[id number] Oral 400 Output: Urine 1260 Other: Voiding Method Toilet Toilet Toilet # Voids 1 1 Weight 102.058 kg General appearance: The patient is alert, oriented, in no acute distress. HET: Head is normocephalic and atraumatic. Pupils are equal and reactive. Oropharynx is clear without lesions. Neck: Supple without lymphadenopathy. Trachea midline. Heart: S1 S2. Regular rate and rhythm. Lungs: No crackles or wheezes are heard. Abdomen: Soft, nontender, nondistended with bowel sounds. No peritoneal signs. No palpable organomegaly or masses. Extremities: Normal skin color and turgor. No cyanosis, rash, ulceration, clubbing, or edema. Radial and pedal pulses are 2/4 bilaterally. Neurological: No focal deficits. Strength and sensation are grossly intact. Results CBC & Chem 7: 01/06/17 07:27 01/06/17 07:27 Labs: Abnormal Lab Results - Last 24 Hours (Table) 01/05/17 01/05/17 01/05/17 Range/Units 09:50 09:50 11:42 Sodium (137-145) mmol/L Chloride 108 H (98-107) mmol/L Glucose 153 H (74-99) mg/dL POC Glucose (mg/dL) 117 H (75-99) mg/dL Hemoglobin A1c 6.5 H (4.2-6.1) % 01/05/17 01/05/17 01/06/17 Range/Units 16:57 20:51 06:51 Sodium (137-145) mmol/L Chloride (98-107) mmol/L Glucose (74-99) mg/dL POC Glucose (mg/dL) 127 H 130 H 109 H (75-99) mg/dL Hemoglobin A1c (4.2-6.1) % 01/06/17 Range/Units 07:27 Sodium 146 H (137-145) mmol/L Chloride 108 H (98-107) mmol/L Glucose 118 H (74-99) mg/dL POC Glucose (mg/dL) (75-99) mg/dL Hemoglobin A1c (4.2-6.1) % Microbiology - Last 24 Hours (Table) 01/04/17 13:27 Blood Culture - Preliminary Blood No Growth after 24 hours US - abdomen: report reviewed (See HPI) Assessment and Plan (1) Liver masses Narrative/Plan: 56-year-old gentleman admitted with acute dyspnea possible pneumonia with ultrasound abdominal imaging suggestive of liver masses possible malignancy. Status: Acute (2) Dyspnea Status: Acute Plan: Hepatitis panel. AFP. Ultrasound/CT-guided liver biopsy per interventional radiology. We'll follow with you. Thank you for this kind referral and the opportunity to participate in the care of your patient. This consultation was discussed with Dr. Donald. The impression and plan of care have been directed as dictated.
[2017-01-06] MEDS: LEVOFLOXACIN 750MG-D5W PMX 750 MG in DEXTROSE/WATER 1 150ML.BAG IVPB SCH (11:42)
[2017-01-06 11:52] LABS: Glucose,Whole Blood 110 mg/dL (75-99)
--- NOTE | 2017-01-06 12:04 | P.PN ---
Progress Note - Text The patient states his abdominal pain is improved today. He is scheduled for a CT-guided liver biopsy today. The patient wishes to go home today. On exam his vital signs are stable. His abdomen soft. Patient is scheduled for CT-guided liver biopsy. He appears to be stable. He may be discharged home tomorrow.
--- NOTE | 2017-01-06 13:17 | US ---
EXAMINATION TYPE: US biopsy liver DATE OF EXAM: 01/06/2017 12:47 PM HISTORY: Liver mass PROCEDURE: Maximal barrier technique was utilized. After informed consent, the skin overlying a suit able path to the left lobe liver lesion was localized using ultrasound, the skin was prepped and lux ped. Ultrasound was utilized with sterile technique. Lidocaine was used for local anesthesia. A skin avi made with a scalpel. Under direct ultrasound guidance, an 18-gauge needle was advanced into th e left lobe of the liver mass and core biopsy obtained. Hemostasis was achieved. There was no immed iate complication and patient remained in stable condition. Specimen submitted in formalin to [facility]. IMPRESSION: STATUS POST ULTRASOUND GUIDED CORE BIOPSY OF THE LEFT LOBE OF THE LIVER MASS, PATHOLOGY P ENDING. PERFORMED BY THE UNDERSIGNED.
[2017-01-06 13:19] VITALS: RESP 16
[2017-01-06] MEDS: clonazePAM 0.5 MG TAB PO PRN (13:19)
--- NOTE | 2017-01-06 14:03 | P.DS ---
Providers Date of admission: 01/04/17 12:06 Expected date of discharge: 01/06/17 Attending physician: Martha Starkey Consults: 01/04/17 14:36 Consult Physician Routine Consulting Provider: Desmond Abernathy Consult Reason/Comments: Liver abscess? Chronic cholecystitis? Do you want consulting provider notified?: Yes 01/05/17 15:27 Consult Physician Routine Consulting Provider: Umberto Amaya Consult Reason/Comments: possible liver mass Do you want consulting provider notified?: Yes 01/05/17 15:30 Consult Physician Routine Consulting Provider: Shari Teixeira Consult Reason/Comments: possible liver mass Do you want consulting provider notified?: Yes Primary care physician: [facility] Course: This is a 56-year-old gentleman with past medical history significant for essential hypertension and hyperlipidemia who presented to the hospital with sharp right-sided flank and abdominal pain. Patient was evaluated in the emergency room and was found to have an elevated d-dimer. He underwent a CT angiogram that was a suboptimal study to rule out PE. Incidentally on the CT noted a mass in the left lobe of the liver that was further evaluated and confirmed by ultrasound. This was highly suspicious for malignancy. Patient himself is not known to have any underlying cancer. He underwent ultrasound- guided liver biopsy. He was seen and evaluated by surgery, GI, and oncology. Plan is to wait for pathology report for further evaluation. He was cleared for discharge home. He will follow-up with his primary care physician and oncology as an outpatient. Depending on the biopsy results further recommendation will be given to the patient. Also noted during this hospitalization he underwent a V/Q scan showing very low probability for PE and a Doppler ultrasound of the lower extremity that was negative for DVT. His lab work was otherwise unremarkable. CEA was negative. Patient will be discharged home in a stable condition. Patient Condition at Discharge: Fair Plan - Discharge Summary Discharge Medication List Baclofen [Lioresal] 10 mg PO TID PRN 06/12/16 [History] Lisinopril 40 mg PO DAILY 06/12/16 [History] [place]-3 Fatty Acids [[place]-3] 2,000 mg PO DAILY 06/12/16 [History] Omeprazole 20 mg PO DAILY PRN 06/12/16 [History] Simvastatin [Zocor] 20 mg PO Q72H 06/12/16 [History] clonazePAM [KlonoPIN] 0.5 mg PO BID PRN 06/12/16 [History] metFORMIN HCL [Glucophage] 500 mg PO DAILY 06/12/16 [History] Desvenlafaxine Succinate [Pristiq ER] 50 mg PO DAILY 01/04/17 [History] Ergocalciferol (Vitamin D2) [Vitamin D2] 50,000 unit PO Q28D 01/04/17 [History] Tamsulosin HCl [Flomax] 0.4 mg PO DAILY 01/04/17 [History] Follow up Appointment(s)/Referral(s): Desmond Abernathy MD [STAFF PHYSICIAN] - 1 Week Jazmin Marquis DO [Primary Care Provider] - 3 Days Discharge Disposition: HOME SELF-CARE
[2017-01-06 14:43] LABS: Hepatitis B Surface Ag Index 0.07
[2017-01-06 14:48] LABS: Hepatitis B Core IgM Index 0.04
[2017-01-06 15:00] LABS: Hepatitis C Virus IgG Index 0.02
[2017-01-06 15:01] LABS: Hepatitis C Virus IgG Ab Negative (Negative)
[2017-01-06 15:53] VITALS: PULSE 110
[2017-01-06 17:15] VITALS: BP 150/78
--- NOTE | 2017-01-06 19:20 | P.CONS ---
History of Present Illness - Reason for Consult Consult date: 01/06/17 Liver masses - History of Present Illness The patient is a 56-year-old gentleman in overall good health. He presented to the emergency room because of acute onset of pain in the right lower chest/right upper quadrant on the morning of admission. The patient denied any specific aggravating factors. The pain was made worse by deep breathing. He came into the emergency room, where he was found to have fever of 100.6. Heart rate was evaluated in the 110-120 range. He underwent a CT of the chest which is negative for pulmonary embolus. It did show evidence of infiltrative changes in the right lung base. In addition heterogenous appearance in the left lobe of the liver was seen that was read as suspicious for an abscess. The patient subsequently underwent an ultrasound of the liver, which confirmed the presence of this mass which was greater than 7 cm in size. In addition there was a smaller 2 cm mass just above the gallbladder fossa noted. As noted above, and the ultrasound appearance was most suggestive of a solid mass rather than an abscess. This was felt to be suspicious for malignancy in consult was placed for further evaluation and recommendations. The patient denied any prior history of malignancy. He states that he had had a colonoscopy within the last 5 years. He also had an EGD within the last few months which was negative. This was prompted by some difficulty in swallowing which has subsequently resolved. Review of Systems Constitutional: Reports fever Eyes: denies blurred vision, denies pain Ears: deny: decreased hearing, ear discharge, earache, tinnitus Ears, nose, mouth and throat: Reports dysphagia (Intermittent. No significant recurrence since EGD) Cardiovascular: Denies chest pain, Denies shortness of breath Respiratory: Denies cough Gastrointestinal: Reports abdominal pain Genitourinary: Reports as per HPI (No specific complaints) Musculoskeletal: Denies myalgias Integumentary: Denies pruritus, Denies rash Neurological: Denies numbness, Denies weakness Psychiatric: Denies anxiety, Denies depression Endocrine: Reports high blood sugars, Denies fatigue, Denies weight change Hematologic/Lymphatic: Reports as per HPI Past Medical History Past Medical History: Diabetes Mellitus, GERD/Reflux, Hyperlipidemia, Hypertension, Sleep Apnea/CPAP/BIPAP Additional Past Medical History / Comment(s): recently having dysphagia to solid foods-fine now, uses CPAP, back problems History of Any Multi-Drug Resistant Organisms: None Reported Past Surgical History: Hernia Repair, Orthopedic Surgery Additional Past Surgical History / Comment(s): arthroscopy knee, EGD, colonoscopy Past Anesthesia/Blood Transfusion Reactions: No Reported Reaction Past Psychological History: Panic Disorder Smoking Status: Former smoker Past Alcohol Use History: None Reported Additional Past Alcohol Use History / Comment(s): quit smoking 20 yrs ago, smoked 1ppd for 20 yrs. Past Drug Use History: None Reported - Past Family History Mother Family Medical History: Cancer Father Family Medical History: Cancer Medications and Allergies Home Medications Medication Instructions Recorded Confirmed Type Baclofen [Lioresal] 10 mg PO TID PRN 06/12/16 01/04/17 History Lisinopril 40 mg PO DAILY 06/12/16 01/04/17 History [place]-3 Fatty Acids [[place]-3] 2,000 mg PO DAILY 06/12/16 01/04/17 History Omeprazole 20 mg PO DAILY PRN 06/12/16 01/04/17 History Simvastatin [Zocor] 20 mg PO Q72H 06/12/16 01/04/17 History clonazePAM [KlonoPIN] 0.5 mg PO BID PRN 06/12/16 01/04/17 History metFORMIN HCL [Glucophage] 500 mg PO DAILY 06/12/16 01/04/17 History Desvenlafaxine Succinate [Pristiq 50 mg PO DAILY 01/04/17 01/04/17 History ER] Ergocalciferol (Vitamin D2) 50,000 unit PO Q28D 01/04/17 01/04/17 History [Vitamin D2] Tamsulosin HCl [Flomax] 0.4 mg PO DAILY 01/04/17 01/04/17 History Allergies Allergy/AdvReac Type Severity Reaction Status Date / Time nitroglycerin AdvReac Rapid Verified 01/04/17 12:38 [From Nitrostat] Heart Rate Physical Exam Vitals: Vital Signs Temp Pulse Pulse Resp BP Pulse Ox 01/06/17 15:45 110 H 16 150/78 95 01/06/17 14:45 110 H 16 155/87 95 01/06/17 14:15 115 H 16 142/78 96 01/06/17 13:45 110 H 16 146/76 94 L 01/06/17 13:30 111 H 16 151/78 93 L 01/06/17 13:15 99 16 134/87 93 L 01/06/17 13:00 115 H 16 137/94 94 L 01/06/17 12:34 110 H 20 148/86 95 01/06/17 12:22 105 H 20 161/91 92 L 01/06/17 10:55 96 01/06/17 10:45 92 01/06/17 07:13 100 01/06/17 07:03 101 H 95 01/06/17 07:00 98.4 F 81 16 115/60 93 L 01/05/17 22:25 97.9 F 89 16 136/80 94 L 01/05/17 19:52 98 01/05/17 19:42 98 Intake and Output 01/06/17 01/06/17 01/06/17 06:59 14:59 22:59 Intake Total 400 550 Balance 400 550 Intake: IV 550 Levofloxacin 750Mg-D5w 150 Pmx 750 mg In Dextrose/ Water 1 150ml.bag @ 100 mls/hr IVPB Q24H SERGO Rx#: [id number] Sodium Chloride 0.9% 1, 400 000 ml @ 50 mls/hr IV . Q20H SERGO Rx#:[id number] Intake, IV Titration 400 Amount Sodium Chloride 0.9% 1, 400 000 ml @ 50 mls/hr IV . Q20H SERGO Rx#:[id number] Other: Voiding Method Toilet Toilet # Voids 1 4 - Constitutional General appearance: no acute distress - EENT Eyes: EOMI, PERRLA ENT: hearing grossly normal, normal oropharynx - Neck Neck: no lymphadenopathy Thyroid: bilateral: normal size - Respiratory Respiratory: right: diminished, left: CTA - Cardiovascular Rhythm: regular Heart sounds: normal: S1, S2 - Gastrointestinal General gastrointestinal: hepatomegaly, normal bowel sounds, soft - Integumentary Integumentary: normal - Neurologic Neurologic: CNII-XII intact - Musculoskeletal Musculoskeletal: strength equal bilaterally - Psychiatric Psychiatric: A&O x's 3, appropriate affect Results CBC & Chem 7: 01/06/17 07:27 01/06/17 07:27 Labs: Abnormal Lab Results - Last 24 Hours (Table) 01/05/17 01/06/17 01/06/17 Range/Units 20:51 06:51 07:27 Sodium 146 H (137-145) mmol/L Chloride 108 H (98-107) mmol/L Glucose 118 H (74-99) mg/dL POC Glucose (mg/dL) 130 H 109 H (75-99) mg/dL 01/06/17 Range/Units 11:35 Sodium (137-145) mmol/L Chloride (98-107) mmol/L Glucose (74-99) mg/dL POC Glucose (mg/dL) 110 H (75-99) mg/dL Microbiology - Last 24 Hours (Table) 01/04/17 13:27 Blood Culture - Preliminary Blood No Growth after 48 hours Chest x-ray: report reviewed CT scan - chest: report reviewed, image reviewed (Ultrasound abdomen report reviewed) Assessment and Plan (1) Liver masses Narrative/Plan: These are found incidentally, on evaluation for his right lower chest / right upper quadrant pain. He'll enzymes are normal. The patient has no prior history of liver disease. He states that he used to drink fairly heavily but quit about 20 years ago. He is diabetic but has no known history of hepatic steatosis. Initially there was concern for an abscess, but these masses appear to be solid on ultrasound. Therefore malignancy is the primary differential diagnosis. Given the large dominant mass, primary liver cancer or cholangiocarcinoma is in the differential the metastasis is not ruled out. My exam and history, the patient does not have any specific symptoms that could indicate a different primary site. Therefore needs to proceed with additional diagnosis. Ultrasound-guided biopsy of the liver masses already been recommended appropriately. Case was also discussed with the GI service. At this time the patient appears to be up-to -date with his GI workup. If the biopsy reveals evidence of a malignancy that is metastatic from a GI primary, then the patient may need repeat endoscopy. Status: Acute (2) Atypical chest pain Narrative/Plan: There is no evidence of pulmonary embolus. Pain is actually much improved. Most likely, given the CT appearance, the patient had a completely acquired pneumonia in the right lower lobe that was causing his symptoms. This has significantly improved with treatment. Status: Acute Plan: The patient feels much better and is anxious to go home. From my standpoint, after the liver biopsy there should be no contraindication to him being discharged. We will follow up in the office once biopsy reports are available.
--- NOTE | 2017-01-10 14:13 | CDI ---
In responding to this query, please exercise your independent professional judgment. The [facility] Coding Staff and Clinical Documentation Specialists appreciate your assistance in clarifying documentation, maintaining compliance with coding guidelines, accurately documenting patients condition and capturing severity of illness. The fact that a question is asked does not imply that any particular answer is desired or expected. Communication forms are a method of clarifying documentation and are not made part of the Legal Health Record. Thank you in advance for your clarification. Last Revision, January 2016 Blairdarnell Palacios [address] [facility] [place] [address] Documentation Clarification Form Date: 01/10/2017 1:57:00 PM From: Kely Becker Phone: Admit Date: 01/04/2017 12:06:00 PM Patient Name: Yonny Mcgrath Visit Number: [id number] Discharge Date: 12/21/16 Dr. Guera Urrutia The final diagnosis of the pathology report states : "Metastatic adenocarcioma of left liver lobe" Documentation states : Presented with sharp right-sided flank and abdominal pain. CT noted a mass in the left lobe of the liver that was further evaluzted and confirmed by US. This was highly suspicious for malignancy. US-guided liver biospy was performed. Patient history/risk factors: DM, GERD/reflux, hyperlipidemia, HTN, Sleep apnea/ CPAP/BIPAP, hx of smoking In your professional opinion, do you agree with the pathology report specifying left liver lobe biospy as metastatic adenocarcinom of the left liver lobe? Yes No Other (please specify) x doesn't apply. Patient discharged before pathology report was available Unable to determine Please document in your progress notes and discharge summary in order to capture severity of illness and risk of mortality. Include clinical findings that support your diagnosis. FYI: Press F11 to launch patient chart JENNIFER Flores, CCS, AHIMA Certified I-[employer] Child Care Supervisor/[place] Child Care Supervisor II NABIL
== END 2017-01-06 17:10 | disposition home or self-care (01) | DRG 872 ==
LOC: EC 09:51 → 5MS5E 12:06
PROVIDERS: ADMIT Internal Medicine; ATTEND Internal Medicine
PROC: 0FB23ZX Excision of Left Lobe Liver, Percutaneous Approach, Diagnostic (ICD-10-PCS; principal; 2017-01-06)
DX: A41.9 Sepsis, unspecified organism (principal); R04.2 Hemoptysis; I10 Essential (primary) hypertension; J98.11 Atelectasis; K81.1 Chronic cholecystitis; E78.2 Mixed hyperlipidemia; E11.9 Type 2 diabetes mellitus without complications; F41.1 Generalized anxiety disorder; F41.0 Panic disorder [episodic paroxysmal anxiety]; G47.30 Sleep apnea, unspecified; K21.9 Gastro-esophageal reflux disease without esophagitis; K44.9 Diaphragmatic hernia without obstruction or gangrene; R13.10 Dysphagia, unspecified; M19.90 Unspecified osteoarthritis, unspecified site; Z87.891 Personal history of nicotine dependence; Z79.84 Long term (current) use of oral hypoglycemic drugs; Z79.899 Other long term (current) drug therapy
CPT/HCPCS: 36415; 47000; 71020; 71275; 76705; 76942; 78582; 80048; 80053; 80074; 81003; 82105; 82378; 82550; 82553; 83036; 83605; 83735; 83880; 84484; 85025; 85379; 85610; 85730; 87040; 87502; 88307; 88341; 88342; 93005; 93970; 94640; 94760; 96361; 96365; 96375; 99285

== ENCOUNTER 2017-02-05 09:07 | Day surgery (SDC) | payer MEDICARE, BC ==
[2017-02-03 15:26] VITALS: BMI 30.8
[~2017-02-05 09:07] MED LIST: DEXAMETHASONE SOD PHOSPHATE 10 MG/ML 1 ML VIAL IV ONE; HEPARIN SODIUM,PORCINE 5,000 UNIT/ML 1 ML VIAL SQ ONE; HYDROmorphone 1 MG/ML 1 ML SYRINGE IVP PRN; LACTATED RINGERS 1,000 ML IV SCH; MIDAZOLAM 2 MG/2 ML VIAL IV PRN; ONDANSETRON 4 MG/2 ML VIAL IVP ONE; SCOPOLAMINE 1.5MG/72HR PATCH TRANSDERM ONE; ceFAZolin 2 GM in SODIUM CHLORIDE 0.9% 100 ML IVPB ONE
[2017-02-05 09:22] VITALS: RESP 18; TEMP 98.1
[2017-02-05 09:34] LABS: Glucose,Whole Blood 99 mg/dL (75-99)
[2017-02-05] MEDS ORDERED: HEPARIN SODIUM,PORCINE 5,000 UNIT/ML 1 ML VIAL SQ ONE (10:19)
--- NOTE | 2017-02-05 10:30 | P.GSHP ---
History of Present Illness H&P Date: 02/05/17 Chief Complaint: Pancreas cancer This a 56-year-old male who presents today for Port-A-Cath insertion. He has been recently diagnosed with pancreatic cancer. - Constitutional Constitutional: Reports as per HPI Past Medical History Past Medical History: Cancer, Diabetes Mellitus, Deep Vein Thrombosis (DVT), GERD/Reflux, Hyperlipidemia, Hypertension, Memory Impairment, Pneumonia, Sleep Apnea/CPAP/BIPAP Additional Past Medical History / Comment(s): C-PAP MACHINE, HOSPITALIZED 01/04- AT [facility] FOR PNEUMONIA, AND DIAGNOSIS OF LIVER CANCER,.PT AND HIS SAID HE HAD A DVT IN HIS LEG ALSO . History of Any Multi-Drug Resistant Organisms: None Reported Past Surgical History: Hernia Repair, Orthopedic Surgery Additional Past Surgical History / Comment(s): arthroscopy knee, EGD, colonoscopy Past Anesthesia/Blood Transfusion Reactions: No Reported Reaction Past Psychological History: Anxiety, Depression Smoking Status: Former smoker Past Alcohol Use History: None Reported Additional Past Alcohol Use History / Comment(s): quit smoking 20 yrs ago, smoked 1-2 ppd for 20 yrs. Past Drug Use History: None Reported - Past Family History Mother Family Medical History: Cancer Father Family Medical History: Cancer Medications and Allergies Home Medications Medication Instructions Recorded Confirmed Type Baclofen [Lioresal] 10 mg PO TID PRN 06/12/16 02/05/17 History Lisinopril 40 mg PO DAILY 06/12/16 02/05/17 History Omeprazole 20 mg PO DAILY 06/12/16 02/05/17 History metFORMIN HCL [Glucophage] 500 mg PO DAILY 06/12/16 02/05/17 History Tamsulosin HCl [Flomax] 0.4 mg PO DAILY 01/04/17 02/05/17 History HYDROcodone/APAP 7.5-325MG [[place] 0.5 tab PO Q6HR PRN 02/03/17 02/05/17 History 7.5-325] Ibuprofen [Motrin] 800 mg PO Q8HR PRN 02/03/17 02/05/17 History Multivitamin [Children's 1 each PO DAILY 02/03/17 02/05/17 History Multivitamins] Rivaroxaban [Xarelto] 15 mg PO BID 02/03/17 02/05/17 History clonazePAM [KlonoPIN] 1 mg PO TID PRN 02/03/17 02/05/17 History Allergies Allergy/AdvReac Type Severity Reaction Status Date / Time nitroglycerin AdvReac Rapid Verified 02/05/17 09:16 [From Nitrostat] Heart Rate Surgical - Exam Vital Signs Temp Pulse Resp BP Pulse Ox 98.1 F 88 18 125/77 100 02/05/17 09:21 02/05/17 09:21 02/05/17 09:21 02/05/17 09:21 02/05/17 09:21 - General well developed, no distress - Eyes PERRL - ENT normal pinna - Neck no masses - Respiratory normal expansion - Cardiovascular Rhythm: regular - Abdomen Abdomen: soft, non tender Assessment and Plan Plan: Recurrent cancer. We'll perform Port-A-Cath insertion.
[2017-02-05] MEDS ORDERED: KETAMINE 10 MG/ML 20 ML VIAL ONE (10:38)
[2017-02-05] MEDS ORDERED: PROPOFOL 10 MG/ML 20 ML VIAL IV ONE (10:38)
[2017-02-05] MEDS ORDERED: MIDAZOLAM 2 MG/2 ML VIAL ONE (10:38)
[2017-02-05] MEDS ORDERED: fentaNYL (PF) 50 MCG/ML 2 ML AMP ONE (10:38)
[2017-02-05] MEDS ORDERED: HEPARIN SODIUM,PORCINE 100 UNIT/ML 5 ML VIAL IV ONE (11:15)
[2017-02-05] MEDS ORDERED: IOHEXOL 180 MG/ML 1 ML ML INJ ONE (11:16)
[2017-02-05] MEDS ORDERED: BUPIVACAIN-EPI 0.25%-1:200,000 30 ML VIAL SQ ONE (11:18)
--- NOTE | 2017-02-05 11:30 | P.OP ---
Date of Procedure: 02/05/17 Preoperative Diagnosis: Pancreatic cancer Postoperative Diagnosis: Pancreatic cancer Procedure(s) Performed: Insertion of right subclavian Port-A-Cath Anesthesia: MAC Surgeon: Desmond Abernathy Estimated Blood Loss (ml): 5 Pathology: none sent Condition: stable Disposition: PACU Description of Procedure: PROCEDURE: The patient was placed on the operating table in the supine position. She received MAC anesthetic. The [right] chest was prepped and draped in the usual sterile fashion. The skin underneath the right clavicle was anesthetized with 1% Xylocaine and using Seldinger technique, the right subclavian vein was cannulized. The wire was placed through the needle and positioned under fluoroscopy. Next, the needle was removed and the port site was anesthetized with 1% Xylocaine. Skin was incised with #15 blade and port pocket was made using blunt and sharp dissection. Following this the catheter was attached to the sport and the port was flushed. The port was positioned into the pocket site and was secured with 3-0 Vicryl suture. The catheter was then brought out through the wire site and then the dilator sheath was placed over the wire and the dilator and the wire were removed. The catheter was placed through the sheath and the sheath was removed. The port was flushed with hep-lock solution. Skin was closed with interrupted 3-0 Vicryl sutures. Steri-Strips were applied. The patient tolerated the procedure well. The patient was sent to recovery room for chest x-ray after the procedure.
--- NOTE | 2017-02-05 12:03 | FL ---
Fluoroscopy HISTORY: Pain 39 seconds fluoroscopy time supplied to the referring clinician. 3ntraoperative C-arm images documen t the procedure, post procedure chest x-ray performed. See dictated report from general surgery.
--- NOTE | 2017-02-05 12:06 | XR ---
EXAMINATION TYPE: XR chest 1V DATE OF EXAM: 02/05/2017 11:54 AM COMPARISON: Chest x-ray January 05, 2017 HISTORY: Port-A-Cath insertion. TECHNIQUE: Single portable frontal view of the chest is obtained. FINDINGS: There is new right subclavian central venous catheter that is slightly kinked, tip is like ly in the right brachiocephalic vein just before confluence. There is no focal air space opacity, ple ural effusion, or pneumothorax seen. The cardiac silhouette size is within normal limits. The osse ous structures are intact. IMPRESSION: New right subclavian central venous catheter with tip short of the SVC. No pneumothorax or postprocedural complication identified.
[2017-02-05 12:08] VITALS: BP 130/74; PULSE 78
== END 2017-02-05 12:42 | disposition home or self-care (01) ==
LOC: OR 09:07
PROVIDERS: ATTEND Surgery
DX: C25.9 Malignant neoplasm of pancreas, unspecified (principal); E11.9 Type 2 diabetes mellitus without complications; K21.9 Gastro-esophageal reflux disease without esophagitis; I10 Essential (primary) hypertension; E78.5 Hyperlipidemia, unspecified; G47.33 Obstructive sleep apnea (adult) (pediatric); R41.3 Other amnesia; Z88.8 Allergy status to other drugs, medicaments and biological substances; Z79.84 Long term (current) use of oral hypoglycemic drugs; Z79.01 Long term (current) use of anticoagulants; Z79.899 Other long term (current) drug therapy; Z87.891 Personal history of nicotine dependence; Z86.718 Personal history of other venous thrombosis and embolism; Z80.9 Family history of malignant neoplasm, unspecified
CPT/HCPCS: 36561; 77001; 71010; C1788; J2250; J1644; J1642; J1100; Q9965; J0690; J2405; J3010; J2704

== ENCOUNTER 2017-02-25 21:41 | Inpatient (IN) | payer MEDICARE, BC ==
[2017-02-25] MEDS ORDERED: SODIUM CHLORIDE 0.9% 1,000 ML IV STA (21:59)
[2017-02-25] MEDS ORDERED: ACETAMINOPHEN TAB 500 MG TAB PO STA (22:00)
[2017-02-25] MEDS ORDERED: IBUPROFEN 800 MG TAB PO STA (22:00)
--- NOTE | 2017-02-25 22:13 | ED ---
General Adult HPI - General Chief complaint: Chest Pain Stated complaint: chest pain, fever Time Seen by Provider: 02/25/17 21:59 Source: patient, family, RN notes reviewed, old records reviewed Mode of arrival: wheelchair Limitations: no limitations - History of Present Illness Initial comments: This is a 36-year-old male here for evaluation today. Patient currently with Reiger's, sweats, pain. Abdominal pain epigastric right-sided and left-sided flank pain. Patient does suffer from panic neck CA, is currently going through chemotherapy. Patient said he began having fever Reiger's and swelling today after treatment. Symptoms progressing throughout the night. Patient did take Tylenol with which did help with symptoms initially. Pain has persisted, no nausea vomiting or diarrhea. No shortness of breath. Just overall does not feel well, feels fatigued weak and tired. - Related Data Home Medications Medication Instructions Recorded Confirmed Lisinopril 40 mg PO DAILY 06/12/16 02/25/17 Omeprazole 20 mg PO DAILY 06/12/16 02/25/17 Tamsulosin HCl [Flomax] 0.4 mg PO DAILY 01/04/17 02/25/17 clonazePAM [KlonoPIN] 1 mg PO TID PRN 02/03/17 02/25/17 ALPRAZolam [Xanax] 0.5 mg PO TID PRN 02/25/17 02/25/17 Acetaminophen Tab [Tylenol Tab] 650 mg PO ONCE 02/25/17 02/25/17 Lidocaine-Prilocaine Cream [[place] 1 applic TOPICAL DAILY PRN 02/25/17 02/25/17 Cream 2.5%/2.5%] Prochlorperazine [Compazine] 10 mg PO Q6H PRN 02/25/17 02/25/17 Rivaroxaban [Xarelto] 20 mg PO DAILY 02/25/17 02/25/17 Sertraline [Zoloft] 50 mg PO DAILY 02/25/17 02/25/17 Zolpidem Tartrate [Ambien] 10 mg PO HS PRN 02/25/17 02/25/17 diphenhydrAMINE HCL [Benadryl] 50 mg PO ONCE 02/25/17 02/25/17 Allergies Allergy/AdvReac Type Severity Reaction Status Date / Time nitroglycerin AdvReac Rapid Verified 02/25/17 22:22 [From Nitrostat] Heart Rate Review of Systems ROS Statement: Those systems with pertinent positive or pertinent negative responses have been documented in the HPI. ROS Other: All systems not noted in ROS Statement are negative. Past Medical History Past Medical History: Cancer, Diabetes Mellitus, Deep Vein Thrombosis (DVT), GERD/Reflux, Hyperlipidemia, Hypertension, Memory Impairment, Pneumonia, Sleep Apnea/CPAP/BIPAP Additional Past Medical History / Comment(s): C-PAP MACHINE, HOSPITALIZED 01/04- AT [facility] FOR PNEUMONIA, AND DIAGNOSIS OF LIVER CANCER,.PT AND HIS SAID HE HAD A DVT IN HIS LEG ALSO . History of Any Multi-Drug Resistant Organisms: None Reported Past Surgical History: Hernia Repair, Orthopedic Surgery Additional Past Surgical History / Comment(s): arthroscopy knee, EGD, colonoscopy Past Anesthesia/Blood Transfusion Reactions: No Reported Reaction Past Psychological History: Anxiety, Depression Smoking Status: Former smoker Past Alcohol Use History: Occasional Additional Past Alcohol Use History / Comment(s): quit smoking 20 yrs ago, smoked 1-2 ppd for 20 yrs. Past Drug Use History: None Reported - Past Family History Mother Family Medical History: Cancer Father Family Medical History: Cancer General Exam Limitations: no limitations General appearance: alert, anxious, in distress Head exam: Present: atraumatic, normocephalic, normal inspection Eye exam: Present: normal appearance, PERRL, EOMI. Absent: scleral icterus, conjunctival injection, periorbital swelling ENT exam: Present: normal exam, mucous membranes dry Neck exam: Present: normal inspection. Absent: tenderness, meningismus, lymphadenopathy Respiratory exam: Present: normal lung sounds bilaterally. Absent: respiratory distress, wheezes, rales, rhonchi, stridor Cardiovascular Exam: Present: normal rhythm, tachycardia, normal heart sounds. Absent: systolic murmur, diastolic murmur, rubs, gallop, clicks GI/Abdominal exam: Present: soft, normal bowel sounds. Absent: distended, tenderness, guarding, rebound, rigid Extremities exam: Present: normal inspection, full ROM, normal capillary refill. Absent: tenderness, pedal edema, joint swelling, calf tenderness Back exam: Present: normal inspection Neurological exam: Present: alert, oriented X3, CN II-XII intact Psychiatric exam: Present: normal affect, normal mood Skin exam: Present: warm, dry, intact, normal color. Absent: rash Course Vital Signs 02/25/17 02/25/17 02/25/17 21:54 23:20 23:32 Temperature 103.2 F H 103.8 F H Pulse Rate 142 H 116 H Pulse Rate [ 120 H [place] ] Respiratory 20 18 Rate Blood Pressure 126/73 111/75 O2 Sat by Pulse 97 99 Oximetry 02/26/17 00:04 Temperature 103.3 F H Pulse Rate 120 H Pulse Rate [ [place] ] Respiratory 18 Rate Blood Pressure 112/55 O2 Sat by Pulse 97 Oximetry - Reevaluation(s) Reevaluation #1: 02/26/17 00:31 Patient's symptoms are mildly improved EKG Findings - EKG Comments: EKG Findings:: EKG shows sinus tachycardia rate 129, NJ 144, QRS 78, QTC 418 Medical Decision Making - Lab Data Result diagrams: 02/25/17 23:25 02/25/17 23:25 Lab Results 02/25/17 02/25/17 02/25/17 Range/Units 23:25 23:25 23:25 WBC 11.4 H (3.8-10.6) k/uL RBC 5.36 (4.30-5.90) m/uL Hgb 14.9 (13.0-17.5) gm/dL Hct 45.9 (39.0-53.0) % MCV 85.6 (80.0-100.0) fL MCH 27.7 (25.0-35.0) pg MCHC 32.4 (31.0-37.0) g/dL RDW 13.8 (11.5-15.5) % Plt Count 182 (150-450) k/uL Neutrophils % 93 % Lymphocytes % 2 % Monocytes % 2 % Eosinophils % 3 % Basophils % 0 % Neutrophils # 10.5 H (1.3-7.7) k/uL Lymphocytes # 0.2 L (1.0-4.8) k/uL Monocytes # 0.3 (0-1.0) k/uL Eosinophils # 0.3 (0-0.7) k/uL Basophils # 0.0 (0-0.2) k/uL PT (9.0-12.0) sec INR (<1.1) APTT (22.0-30.0) sec Sodium 136 L (137-145) mmol/L Potassium 4.5 (3.5-5.1) mmol/L Chloride 100 (98-107) mmol/L Carbon Dioxide 24 (22-30) mmol/L Anion Gap 12 mmol/L BUN 13 (9-20) mg/dL Creatinine 0.90 (0.66-1.25) mg/dL Est GFR (MDRD) Af Amer >60 (>60 ml/min/1.73 sqM) Est GFR (MDRD) Non-Af >60 (>60 ml/min/1.73 sqM) Glucose 125 H (74-99) mg/dL Plasma Lactic Acid Jovani (0.7-2.0) mmol/L Calcium 9.6 (8.4-10.2) mg/dL Phosphorus 2.4 L (2.5-4.5) mg/dL Magnesium 1.6 (1.6-2.3) mg/dL Total Bilirubin 0.9 (0.2-1.3) mg/dL AST 36 (17-59) U/L ALT 45 (21-72) U/L Alkaline Phosphatase 198 H (38-126) U/L Total Creatine Kinase 21 L (55-170) U/L CK-MB (CK-2) <0.2 (0.0-2.4) ng/mL CK-MB (CK-2) Rel Index Troponin I <0.012 (0.000-0.034) ng/mL Total Protein 7.8 (6.3-8.2) g/dL Albumin 4.0 (3.5-5.0) g/dL Influenza Type A RNA (Not Detectd) Influenza Type B (PCR) (Not Detectd) 02/25/17 02/25/17 02/25/17 Range/Units 23:25 23:25 23:25 WBC (3.8-10.6) k/uL RBC (4.30-5.90) m/uL Hgb (13.0-17.5) gm/dL Hct (39.0-53.0) % MCV (80.0-100.0) fL MCH (25.0-35.0) pg MCHC (31.0-37.0) g/dL RDW (11.5-15.5) % Plt Count (150-450) k/uL Neutrophils % % Lymphocytes % % Monocytes % % Eosinophils % % Basophils % % Neutrophils # (1.3-7.7) k/uL Lymphocytes # (1.0-4.8) k/uL Monocytes # (0-1.0) k/uL Eosinophils # (0-0.7) k/uL Basophils # (0-0.2) k/uL PT 14.5 H (9.0-12.0) sec INR 1.5 (<1.1) APTT 23.6 (22.0-30.0) sec Sodium (137-145) mmol/L Potassium (3.5-5.1) mmol/L Chloride (98-107) mmol/L Carbon Dioxide (22-30) mmol/L Anion Gap mmol/L BUN (9-20) mg/dL Creatinine (0.66-1.25) mg/dL Est GFR (MDRD) Af Amer (>60 ml/min/1.73 sqM) Est GFR (MDRD) Non-Af (>60 ml/min/1.73 sqM) Glucose (74-99) mg/dL Plasma Lactic Acid Jovani 1.9 (0.7-2.0) mmol/L Calcium (8.4-10.2) mg/dL Phosphorus (2.5-4.5) mg/dL Magnesium (1.6-2.3) mg/dL Total Bilirubin (0.2-1.3) mg/dL AST (17-59) U/L ALT (21-72) U/L Alkaline Phosphatase (38-126) U/L Total Creatine Kinase (55-170) U/L CK-MB (CK-2) (0.0-2.4) ng/mL CK-MB (CK-2) Rel Index Troponin I (0.000-0.034) ng/mL Total Protein (6.3-8.2) g/dL Albumin (3.5-5.0) g/dL Influenza Type A RNA Not Detected (Not Detectd) Influenza Type B (PCR) Not Detected (Not Detectd) Disposition Clinical Impression: Fever, Sepsis Disposition: ADMITTED IP TO THIS HOSP Condition: Fair Referrals: Jazmin Marquis DO [Primary Care Provider] - 1-2 days
[2017-02-25] MEDS ORDERED: DIAZEPAM 5 MG/ML 2 ML SYRINGE IVP STA (22:35)
[2017-02-25 23:37] LABS: Basophils % (A) 0 %; CH 27.9; CHCM 32.7; Eosinophils # (A) 0.3 k/uL (0-0.7); Eosinophils % (A) 3 %; HCT 45.9 % (39.0-53.0); HDW 2.63; HGB 14.9 gm/dL (13.0-17.5); Luc # (Auto) 0.03; Luc % (Auto) 0; Lymphocytes # (A) 0.2 k/uL (1.0-4.8); Lymphocytes % (A) 2 %; MCH 27.7 pg (25.0-35.0); MCHC 32.4 g/dL (31.0-37.0); MCV 85.6 fL (80.0-100.0); Mean Platelet Volume 7.4; Monocytes # (A) 0.3 k/uL (0-1.0); Monocytes % (A) 2 %; Neutrophils # (A) 10.5 k/uL (1.3-7.7); Neutrophils % (A) 93 %; RBC 5.36 m/uL (4.30-5.90); RDW 13.8 % (11.5-15.5); WBC 11.4 k/uL (3.8-10.6); WBC (Perox) 11.02
[2017-02-25 23:46] LABS: ALT 45 U/L (21-72); AST 36 U/L (17-59); Alkaline Phosphatase 198 U/L (38-126); Anion Gap 12 mmol/L; Blood Urea Nitrogen 13 mg/dL (9-20); Calcium 9.6 mg/dL (8.4-10.2); Carbon Dioxide 24 mmol/L (22-30); Chloride 100 mmol/L (98-107); Glucose 125 mg/dL (74-99); Magnesium 1.6 mg/dL (1.6-2.3); Non-African American GFR(MDRD) >60 (>60 ml/min/1.73 sqM); Phosphorous 2.4 mg/dL (2.5-4.5); Potassium 4.5 mmol/L (3.5-5.1); Sodium 136 mmol/L (137-145); Total Bilirubin 0.9 mg/dL (0.2-1.3); Total Protein 7.8 g/dL (6.3-8.2)
[2017-02-25 23:49] LABS: INR 1.5 (<1.1); Partial Thromboplastin Time 23.6 sec (22.0-30.0); Prothrombin Time 14.5 sec (9.0-12.0)
[2017-02-26 00:02] LABS: Creatine Kinase 21 U/L (55-170)
[2017-02-26] MEDS ORDERED: MORPHINE SULFATE 4 MG/ML SYRINGE IVP STA ×2 (00:02→00:09)
[2017-02-26 00:15] LABS: Creatine Kinase MB <0.2 ng/mL (0.0-2.4); Troponin I <0.012 ng/mL (0.000-0.034)
--- NOTE | 2017-02-26 00:20 | XR ---
History: Reason: Weakness Exam: XR CXR 2 VIEWS Comparison: 02/05/2017 FINDINGS: The lungs are clear. The cardiac and mediastinal contours appear within limits. Right port again noted. Visualized osseous structures appear within limits. IMPRESSION: No evidence of acute disease. Right port again noted.
[2017-02-26] MEDS ORDERED: CEFEPIME 2 GM in SODIUM CHLORIDE 0.9% 50 ML IVPB STA (00:57)
[2017-02-26] MEDS ORDERED: IV VANCOMYCIN PER PHARMACY 1 EACH MISC MISCELLANE PRN (00:57)
[2017-02-26] MEDS ORDERED: SODIUM CHLORIDE 0.9% 1,000 ML IV ONE (00:57)
[2017-02-26] MEDS ORDERED: VANCOMYCIN 1,500 MG in SODIUM CHLORIDE 0.9% 250 ML IVPB ONE (01:15)
[2017-02-26] MEDS ORDERED: ACETAMINOPHEN TAB 325 MG TAB PO PRN (02:00)
[2017-02-26] MEDS: MORPHINE SULFATE 4 MG/ML SYRINGE IV PRN ×2 (02:32→08:08)
[2017-02-26 05:11] LABS: Appearance,Urine Clear (Clear); Bilirubin,Urine Negative (Negative); Glucose,Urine (UA) Negative (Negative); Ketones,Urine Negative (Negative); Leukocyte Esterase,Urine Negative (Negative); Mucus,Urine Occasional /hpf; Nitrite,Urine Negative (Negative); Particle Count 2691; Protein,Urine 1+ (Negative); RBC,Urine 2 /hpf (0-5); Specific Gravity,Urine 1.023 (1.001-1.035); Squamous Epithelial Cell,Urine <1 /hpf (0-4); UA Billing (MACRO vs. MICRO) MICRO; WBC,Urine 2 /hpf (0-5)
[2017-02-26 06:19] LABS: Glucose,Whole Blood 150 mg/dL (75-99)
[2017-02-26] MEDS ORDERED: LIDOCAINE-PRILOCAINE 2.5-2.5% CREAM 5 GM TUBE TOPICAL PRN (08:47)
[2017-02-26] MEDS ORDERED: PROCHLORPERAZINE 10 MG TAB PO PRN (08:47)
[2017-02-26 08:57] LABS: Basophils % (A) 0 %; CHCM 31.8; Eosinophils # (A) 0.3 k/uL (0-0.7); Eosinophils % (A) 3 %; HCT 39.3 % (39.0-53.0); HDW 2.68; Hypochromasia Slight; Luc # (Auto) 0.08; Luc % (Auto) 1; Lymphocytes # (A) 0.1 k/uL (1.0-4.8); Lymphocytes % (A) 1 %; MCH 28.3 pg (25.0-35.0); MCHC 33.1 g/dL (31.0-37.0); MCV 85.4 fL (80.0-100.0); Mean Platelet Volume 7.6; Monocytes # (A) 0.3 k/uL (0-1.0); Monocytes % (A) 3 %; Neutrophils # (A) 9.2 k/uL (1.3-7.7); Neutrophils % (A) 92 %; RDW 13.6 % (11.5-15.5); WBC (Perox) 10.69
[2017-02-26 09:03] LABS: ALT 42 U/L (21-72); AST 31 U/L (17-59); Alkaline Phosphatase 150 U/L (38-126); Anion Gap 10 mmol/L; Blood Urea Nitrogen 15 mg/dL (9-20); Calcium 8.1 mg/dL (8.4-10.2); Carbon Dioxide 20 mmol/L (22-30); Chloride 106 mmol/L (98-107); Glucose 160 mg/dL (74-99); Non-African American GFR(MDRD) >60 (>60 ml/min/1.73 sqM); Potassium 4.6 mmol/L (3.5-5.1); Sodium 136 mmol/L (137-145); Total Bilirubin 0.9 mg/dL (0.2-1.3)
[2017-02-26] MEDS: PANTOPRAZOLE 40 MG TABLET PO SCH (09:29)
[2017-02-26] MEDS: SERTRALINE 50 MG TAB PO SCH (09:29)
[2017-02-26] MEDS: TAMSULOSIN 0.4 MG CAP.ER.24H PO SCH (09:29)
[2017-02-26 09:32] LABS: Manual Review Performed
[2017-02-26] MEDS ORDERED: ONDANSETRON 4 MG/2 ML VIAL IVP PRN (09:57)
[2017-02-26 11:09] VITALS: BMI 28.7
[2017-02-26] MEDS ORDERED: RX INFO: IV CONTRAST WAS GIVEN 1 EACH MISC MISCELLANE PRN (11:14)
[2017-02-26] MEDS: SODIUM CHLORIDE 0.9% 1,000 ML IV SCH ×2 (11:16→20:38)
[2017-02-26] MEDS: CEFEPIME 2 GM in SODIUM CHLORIDE 0.9% 50 ML IVPB SCH ×2 (11:16→20:38)
--- NOTE | 2017-02-26 11:17 | P.HPIM ---
History of Present Illness H&P Date: 02/26/17 Chief Complaint: Severe chills and fever This is a 36-year-old male, patient of Dr. Marquis. He has a known past medical history of pancreatic cancer diagnosed in December. Recent started chemotherapy about 3 weeks ago. He is followed by for oncology. Patient also has a history of DVT in his leg, hyperlipidemia, diabetes mellitus , hypertension and obstructive sleep apnea. Patient presents to the emergency room with complaints of severe chills and high-grade fever of 101 at home. Patient also complains of pain on the sides of his abdomen bilaterally and some pain in the epigastric area. He did have one episode of diarrhea. He contacted Dr. Amaya's office and they recommended he presents to the emergency room. Temp on admission was 103.8 with a white count of 11.4. He is also tachycardic with heart rate of 129. He was also hypotensive in the emergency room requiring IV fluid bolus. Lactic acid within normal range of 1.9. Oncology has been consulted. Patient has been started on IV cefepime and vancomycin. Chest x-ray was negative. Influenza screen negative, Urinalysis negative. Blood cultures are pending. Patient denies any nausea or vomiting. Denies any chest pain or shortness of breath. Denies any burning with urination. Denies any new skin rash. Patient's symptoms did start after chemotherapy yesterday. Patient reports that he is feeling better. He is afebrile this morning. White count has normalized. He is no longer having abdominal pain. Review of Systems Please refer to HPI otherwise unremarkable Past Medical History Past Medical History: Cancer, Diabetes Mellitus, Deep Vein Thrombosis (DVT), GERD/Reflux, Hyperlipidemia, Hypertension, Memory Impairment, Pneumonia, Sleep Apnea/CPAP/BIPAP Additional Past Medical History / Comment(s): C-PAP MACHINE, HOSPITALIZED 01/04- AT [facility] FOR PNEUMONIA, AND DIAGNOSIS OF PANCREATIC CANCER METASTASIZED TO THE LIVER .PT AND HIS SAID HE HAD A DVT IN HIS LEG ALSO . History of Any Multi-Drug Resistant Organisms: None Reported Past Surgical History: Hernia Repair, Orthopedic Surgery Additional Past Surgical History / Comment(s): arthroscopy knee, EGD, colonoscopy Past Anesthesia/Blood Transfusion Reactions: No Reported Reaction Past Psychological History: Anxiety, Depression Smoking Status: Former smoker Past Alcohol Use History: Occasional Additional Past Alcohol Use History / Comment(s): quit smoking 20 yrs ago, smoked 1-2 ppd for 20 yrs. Past Drug Use History: None Reported - Past Family History Mother Family Medical History: Cancer Father Family Medical History: Cancer Medications and Allergies Home Medications Medication Instructions Recorded Confirmed Type Lisinopril 40 mg PO DAILY 06/12/16 02/26/17 History Omeprazole 20 mg PO DAILY 06/12/16 02/26/17 History Tamsulosin HCl [Flomax] 0.4 mg PO DAILY 01/04/17 02/26/17 History clonazePAM [KlonoPIN] 1 mg PO TID PRN 02/03/17 02/26/17 History ALPRAZolam [Xanax] 0.5 mg PO TID PRN 02/25/17 02/26/17 History Acetaminophen Tab [Tylenol Tab] 650 mg PO ONCE 02/25/17 02/26/17 History Lidocaine-Prilocaine Cream [Emla 1 applic TOPICAL DAILY PRN 02/25/17 02/26/17 History Cream 2.5%/2.5%] Prochlorperazine [Compazine] 10 mg PO Q6H PRN 02/25/17 02/26/17 History Rivaroxaban [Xarelto] 20 mg PO DAILY 02/25/17 02/26/17 History Sertraline [Zoloft] 50 mg PO DAILY 02/25/17 02/26/17 History Zolpidem Tartrate [Ambien] 10 mg PO HS PRN 02/25/17 02/26/17 History diphenhydrAMINE HCL [Benadryl] 50 mg PO ONCE 02/25/17 02/26/17 History Allergies Allergy/AdvReac Type Severity Reaction Status Date / Time nitroglycerin AdvReac Rapid Verified 02/26/17 05:22 [From Nitrostat] Heart Rate Physical Exam Vitals: Vital Signs Temp Pulse Pulse Resp BP BP Pulse Ox 02/26/17 08:00 97.1 F L 74 18 91/44 95 02/26/17 06:22 98.3 F 76 18 88/51 94 L 02/26/17 04:37 91 18 98/56 97 02/26/17 04:19 98.7 F 87 18 107/61 97 02/26/17 04:00 85 18 102/59 99 02/26/17 03:41 93 18 95/54 97 02/26/17 03:08 84 18 98/54 99 02/26/17 03:00 86 18 94/51 96 02/26/17 02:43 98.8 F 79 18 86/52 95 02/26/17 01:22 101.3 F H 113 H 18 108/54 97 Intake and Output 02/25/17 02/26/17 02/26/17 22:59 06:59 14:59 Intake Total 250 Balance 250 Intake: IV 250 Vancomycin 1,500 mg In 250 Sodium Chloride 0.9% 250 ml @ 125 mls/hr IVPB ONCE ONE Rx#:[id number] Head normocephalic Neck supple Lungs clear to auscultation bilaterally no wheezing or crackles Heart regular rate and rhythm S1-S2, no rub or gallop Abdomen is soft nontender nondistended positive bowel sounds no hepatosplenomegaly Extremities no edema Neuro alert and orientated to 3 Results CBC & Chem 7: 02/26/17 06:17 02/26/17 06:17 Labs: Abnormal Lab Results - Last 24 Hours (Table) 02/26/17 02/26/17 02/26/17 Range/Units 04:56 06:17 06:17 Neutrophils # 9.2 H (1.3-7.7) k/uL Lymphocytes # 0.1 L (1.0-4.8) k/uL Sodium (137-145) mmol/L Carbon Dioxide (22-30) mmol/L Glucose (74-99) mg/dL POC Glucose (mg/dL) 150 H (75-99) mg/dL Calcium (8.4-10.2) mg/dL Alkaline Phosphatase (38-126) U/L Total Protein (6.3-8.2) g/dL Albumin (3.5-5.0) g/dL Urine Protein 1+ H (Negative) Urine Mucus Occasional H (None) /hpf 02/26/17 Range/Units 06:17 Neutrophils # (1.3-7.7) k/uL Lymphocytes # (1.0-4.8) k/uL Sodium 136 L (137-145) mmol/L Carbon Dioxide 20 L (22-30) mmol/L Glucose 160 H (74-99) mg/dL POC Glucose (mg/dL) (75-99) mg/dL Calcium 8.1 L (8.4-10.2) mg/dL Alkaline Phosphatase 150 H (38-126) U/L Total Protein 6.0 L (6.3-8.2) g/dL Albumin 2.9 L (3.5-5.0) g/dL Urine Protein (Negative) Urine Mucus (None) /hpf Thrombosis Risk Factor Assmnt - Choose All That Apply Any of the Below Risk Factors Present?: Yes Each Factor Represents 1 point: Age 41-60 years, Obesity (BMI >25) Other Risk Factors: Yes Each Risk Factor Represents 2 Points: Malignancy Each Risk Factor Represents 3 Points: History of DVT/PE Other congenital or acquired thrombophilia - If yes, enter type in comment: No Thrombosis Risk Factor Assessment Total Risk Factor Score: 7 Thrombosis Risk Factor Assessment Level: High Risk Assessment and Plan Plan: 1. Abdominal pain with fever and sepsis present on admission: Check computed tomography scan of the abdomen and pelvis with oral and IV contrast. Blood cultures pending. Influenza screen negative. Urinalysis negative awaiting urine culture. Chest x-ray negative. Check stool for C. diff. Continue cefepime and IV vancomycin. Oncology consulted 2. Sepsis present on admission: White count 11.4, temperature 103.8 and tachycardic. Continue with IV fluids. Await blood cultures. Continue antibiotics. 3. Recent diagnosis of pancreatic cancer with liver metastases: Oncology consulted. Patient had chemo treatment in office yesterday. Currently receiving continuous chemotherapy 4. History of DVT of the lower extremity: Continue Xarelto 5. History of diabetes mellitus type 2: Continue sliding scale coverage 6. Hypotension likely secondary to sepsis. Patient receiving IV fluids. Hold blood pressure medication 7. History of essential hypertension: Lisinopril on hold for low BP 8. Generalized Anxiety disorder resume Xanax GI prophylaxis Protonix and DVT prophylaxis Xarelto Time with Patient: Greater than 30 (Greater than 50% of the total time spent in counseling and coordination of care.I performed an examination of the patient and discussed their management with the physician Sign Manufacturer. I have reviewed the Physician Sign Manufacturer's notes and agree with the documented findings and plan of care)
[2017-02-26] MEDS: IOHEXOL 350 MG/ML 25 ML BOTTLE (ORAL USE) PO PRN ×2 (11:28→12:26)
[2017-02-26 12:19] LABS: Glucose,Whole Blood 151 mg/dL (75-99)
[2017-02-26] MEDS: INSULIN LISPRO (humaLOG) 300 UNIT/3 ML VIAL SQ SCH ×3 (12:27→21:02)
--- NOTE | 2017-02-26 14:20 | CT ---
EXAMINATION TYPE: CT abdomen pelvis w con DATE OF EXAM: 02/26/2017 1:18 PM COMPARISON: NONE INDICATION: Patient unresponsive at time of exam. DLP: 1625 mGycm, Automated exposure control for dose reduction was used. CONTRAST: 100 mL of Omnipaque 300. Study performed with Oral Contrast TECHNIQUE: Axial images were obtained from above the diaphragm to the pubic rami in the axial plane a t 5 mm thick sections. Reconstructed images are reviewed on the computer in the coronal plane. FINDINGS: Limited CT sections are obtained the lung bases. The lung bases are clear. CT ABDOMEN: Liver: There is patchy density changes through the liver. Patchy fatty infiltration should be conside red. Another infiltrative process such as neoplasm or infection could be considered. There are hypode nsities scattered within the liver majority which could be hepatic cysts. Other etiologies are not ex cluded including neoplasm. Spleen: Normal Pancreas: Normal Adrenal glands: The adrenal glands are normal. Gallbladder: Normal Kidneys: No masses are evident. No hydronephrosis is present. No cysts are present. Delayed images were obtained through the kidneys, which remain unremarkable. Aorta: Vascular calcification is within the aorta. Inferior vena cava: Normal. CT PELVIS: Loops of bowel within the abdomen and pelvis are normal. There are loops of bowel which are incom pletely distended or lack oral contrast limiting their evaluation. Appendix: Normal as visualized. Urinary bladder: Some thickening of the urinary bladder wall may be present. This could be related to incomplete distention. Genitourinary structures: Prostate is normal Osseous structures: No suspicious lytic or sclerotic lesions. IMPRESSIONS: 1. Infiltrative process through the liver especially within the left lobe liver suspicious for under lying masses. There may be some hepatic cysts present. Metastatic disease however should also be cons idered within the differential.
[2017-02-26] MEDS: VANCOMYCIN 1,500 MG in SODIUM CHLORIDE 0.9% 250 ML IVPB SCH (15:42)
[2017-02-26 17:07] LABS: Glucose,Whole Blood 107 mg/dL (75-99)
[2017-02-26] MEDS: RIVAROXABAN 10 MG TAB PO SCH (17:15)
[2017-02-26] MEDS: SALT AND SODA MOUTHWASH 1,000 ML PO SCH (20:48)
[2017-02-26 21:04] LABS: Glucose,Whole Blood 122 mg/dL (75-99)
[2017-02-26] MEDS: ZOLPIDEM 10 MG TAB PO PRN (22:42)
[2017-02-26] MEDS: ALPRAZolam 0.5 MG TAB PO PRN (22:43)
[2017-02-26] MEDS: clonazePAM 1 MG TAB PO PRN (22:57)
--- NOTE | 2017-02-26 23:10 | P.CONS ---
History of Present Illness - Reason for Consult Consult date: 02/26/17 pancreatic carcinoma Requesting physician: Jere Clifton - Chief Complaint abd pain and fever - History of Present Illness Malignancy history: Mr. Mcgrath is a pleasant male pt of Dr. Amaya who was initially seen in consult at [facility] on 01/06/17. He presented with acute onset of pain in the right lower chest/RUQ, worse with inspiration, subsequently he developed fever and tachycardia. CTA of the chest was negative for PE, no masses or adenopathy, heterogenous appearance of the left lobe of the liver, US of the liver confirmed a solid 7 cm mass as well as a 2 cm mass just above the gallbladder fossa. He had an US guided core biopsy of the left lobe of liver mass, pathology positive for adenocarcinoma, CK7 positive and Napsin weakly positive. Differentials included lung, upper GI and pancreatobiliary primary. Staging PET scan and CA 19-9, uptake in multiple lesions in both lobes of the liver, mediastinum, and retroperitoneum, Ca 19-9 was 6370. Pt was started on FOLFOX and is s/p 1st cycle and currently he is on day 2 of 3 as he has the fluorouracil CIVI pump in place and it is due to be discontinued tomorrow. Pt was having fever, chills and abd discomfort at home x 1 day, fevers persisted, he was feeling weak, so he was instructed to come to the ER, T max 103.8 F on admit, pancultures ordered, empiric abx ordered. When seen pt states feeling better, no oral irritation, nausea, vomiting, cough, chest pain, his abd pain is better, no diarrhea or constipation. Review of Systems All systems: negative Constitutional: Reports as per HPI Past Medical History Past Medical History: Cancer, Diabetes Mellitus, Deep Vein Thrombosis (DVT), GERD/Reflux, Hyperlipidemia, Hypertension, Memory Impairment, Pneumonia, Sleep Apnea/CPAP/BIPAP Additional Past Medical History / Comment(s): C-PAP MACHINE, HOSPITALIZED 01/04- AT [facility] FOR PNEUMONIA, AND DIAGNOSIS OF PANCREATIC CANCER METASTASIZED TO THE LIVER .PT AND HIS SAID HE HAD A DVT IN HIS LEG ALSO . History of Any Multi-Drug Resistant Organisms: None Reported Past Surgical History: Hernia Repair, Orthopedic Surgery Additional Past Surgical History / Comment(s): arthroscopy knee, EGD, colonoscopy Past Anesthesia/Blood Transfusion Reactions: No Reported Reaction Past Psychological History: Anxiety, Depression Smoking Status: Former smoker Past Alcohol Use History: Occasional Additional Past Alcohol Use History / Comment(s): quit smoking 20 yrs ago, smoked 1-2 ppd for 20 yrs. Past Drug Use History: None Reported - Past Family History Mother Family Medical History: Cancer Father Family Medical History: Cancer Medications and Allergies Home Medications Medication Instructions Recorded Confirmed Type Lisinopril 40 mg PO DAILY 06/12/16 02/26/17 History Omeprazole 20 mg PO DAILY 06/12/16 02/26/17 History Tamsulosin HCl [Flomax] 0.4 mg PO DAILY 01/04/17 02/26/17 History clonazePAM [KlonoPIN] 1 mg PO TID PRN 02/03/17 02/26/17 History ALPRAZolam [Xanax] 0.5 mg PO TID PRN 02/25/17 02/26/17 History Acetaminophen Tab [Tylenol Tab] 650 mg PO ONCE 02/25/17 02/26/17 History Lidocaine-Prilocaine Cream [Emla 1 applic TOPICAL DAILY PRN 02/25/17 02/26/17 History Cream 2.5%/2.5%] Prochlorperazine [Compazine] 10 mg PO Q6H PRN 02/25/17 02/26/17 History Rivaroxaban [Xarelto] 20 mg PO DAILY 02/25/17 02/26/17 History Sertraline [Zoloft] 50 mg PO DAILY 02/25/17 02/26/17 History Zolpidem Tartrate [Ambien] 10 mg PO HS PRN 02/25/17 02/26/17 History diphenhydrAMINE HCL [Benadryl] 50 mg PO ONCE 02/25/17 02/26/17 History Allergies Allergy/AdvReac Type Severity Reaction Status Date / Time nitroglycerin AdvReac Rapid Verified 02/26/17 05:22 [From Nitrostat] Heart Rate Physical Exam Vitals: Vital Signs Temp Pulse Pulse Resp BP BP Pulse Ox 02/26/17 11:16 97.5 F L 79 18 85/44 94 L 02/26/17 08:00 97.1 F L 74 18 91/44 95 02/26/17 06:22 98.3 F 76 18 88/51 94 L 02/26/17 04:37 91 18 98/56 97 02/26/17 04:19 98.7 F 87 18 107/61 97 02/26/17 04:00 85 18 102/59 99 02/26/17 03:41 93 18 95/54 97 02/26/17 03:08 84 18 98/54 99 02/26/17 03:00 86 18 94/51 96 02/26/17 02:43 98.8 F 79 18 86/52 95 02/26/17 01:22 101.3 F H 113 H 18 108/54 97 Intake and Output 02/25/17 02/26/17 02/26/17 22:59 06:59 14:59 Intake Total 250 700 Balance 250 700 Intake: IV 250 Vancomycin 1,500 mg In 250 Sodium Chloride 0.9% 250 ml @ 125 mls/hr IVPB ONCE ONE Rx#:[id number] Intake, IV Titration 700 Amount Sodium Chloride 0.9% 1, 700 000 ml @ 100 mls/hr IV . Q10H [facility] Rx#:[id number] Other: Weight 90.718 kg Patient Weight 02/27/17 06:59 Weight 90.718 kg - Constitutional General appearance: average body habitus, cooperative, no acute distress - EENT Eyes: anicteric sclerae, normal appearance ENT: normal oropharynx - Neck Neck: no lymphadenopathy - Respiratory Respiratory: bilateral: CTA - Cardiovascular Rhythm: regular Heart sounds: normal: S1, S2 leg Peripheral Edema: bilateral: None - Gastrointestinal General gastrointestinal: no absent bowel sounds, no decreased bowel sounds, no distended, no hepatomegaly, no hyperactive bowel sounds, normal bowel sounds, no organomegaly, no rigid, no scaphoid, soft, no splenomegaly, no tenderness, no umbilical hernia, no ventral hernia - Neurologic Neurologic: CNII-XII intact - Musculoskeletal Musculoskeletal: strength equal bilaterally - Psychiatric Psychiatric: A&O x's 3, appropriate affect, intact judgment & insight Results CBC & Chem 7: 02/26/17 06:17 02/26/17 06:17 Labs: Abnormal Lab Results - Last 24 Hours (Table) 02/26/17 02/26/17 02/26/17 Range/Units 04:56 06:17 06:17 Neutrophils # 9.2 H (1.3-7.7) k/uL Lymphocytes # 0.1 L (1.0-4.8) k/uL Sodium (137-145) mmol/L Carbon Dioxide (22-30) mmol/L Glucose (74-99) mg/dL POC Glucose (mg/dL) 150 H (75-99) mg/dL Calcium (8.4-10.2) mg/dL Alkaline Phosphatase (38-126) U/L Total Protein (6.3-8.2) g/dL Albumin (3.5-5.0) g/dL Urine Protein 1+ H (Negative) Urine Mucus Occasional H (None) /hpf 02/26/17 02/26/17 Range/Units 06:17 12:10 Neutrophils # (1.3-7.7) k/uL Lymphocytes # (1.0-4.8) k/uL Sodium 136 L (137-145) mmol/L Carbon Dioxide 20 L (22-30) mmol/L Glucose 160 H (74-99) mg/dL POC Glucose (mg/dL) 151 H (75-99) mg/dL Calcium 8.1 L (8.4-10.2) mg/dL Alkaline Phosphatase 150 H (38-126) U/L Total Protein 6.0 L (6.3-8.2) g/dL Albumin 2.9 L (3.5-5.0) g/dL Urine Protein (Negative) Urine Mucus (None) /hpf Microbiology - Last 24 Hours (Table) 02/26/17 04:56 Urine Culture - Preliminary Urine,Voided CT scan - abdomen: report reviewed CT scan - pelvis: report reviewed Assessment and Plan (1) Pancreatic adenocarcinoma Narrative/Plan: Pt is currently receiving treatment, CIVI pump running. Cont with treatment at this time. We will discontinue pump tomorrow when infusion completed. Status: Acute (2) Fever Narrative/Plan: Fevers have resolved since starting abx, pt feeling better, cultures are pending. Status: Acute
[2017-02-27] MEDS: SALT AND SODA MOUTHWASH 1,000 ML PO SCH ×6 (04:55→23:33)
[2017-02-27] MEDS: VANCOMYCIN 1,500 MG in SODIUM CHLORIDE 0.9% 250 ML IVPB SCH ×2 (04:58→16:19)
[2017-02-27 05:57] LABS: Glucose,Whole Blood 102 mg/dL (75-99)
[2017-02-27] MEDS: INSULIN LISPRO (humaLOG) 300 UNIT/3 ML VIAL SQ SCH ×4 (06:06→19:56)
[2017-02-27] MEDS: SODIUM CHLORIDE 0.9% 1,000 ML IV SCH ×2 (06:06→16:19)
[2017-02-27 06:38] LABS: Basophils % (A) 0 %; CH 27.8; CHCM 33.2; Eosinophils # (A) 0.4 k/uL (0-0.7); Eosinophils % (A) 7 %; HCT 39.3 % (39.0-53.0); HDW 2.84; HGB 13.2 gm/dL (13.0-17.5); Luc # (Auto) 0.08; Luc % (Auto) 1; Lymphocytes # (A) 0.5 k/uL (1.0-4.8); Lymphocytes % (A) 8 %; MCH 28.3 pg (25.0-35.0); MCHC 33.7 g/dL (31.0-37.0); MCV 84.1 fL (80.0-100.0); Mean Platelet Volume 7.1; Monocytes # (A) 0.2 k/uL (0-1.0); Monocytes % (A) 3 %; Neutrophils # (A) 4.5 k/uL (1.3-7.7); Neutrophils % (A) 80 %; RBC 4.67 m/uL (4.30-5.90); RDW 13.7 % (11.5-15.5); WBC 5.6 k/uL (3.8-10.6); WBC (Perox) 5.93
[2017-02-27 06:52] LABS: ALT 130 U/L (21-72); AST 78 U/L (17-59); Alkaline Phosphatase 204 U/L (38-126); Anion Gap 6 mmol/L; Blood Urea Nitrogen 13 mg/dL (9-20); Calcium 8.5 mg/dL (8.4-10.2); Carbon Dioxide 26 mmol/L (22-30); Chloride 107 mmol/L (98-107); Glucose 111 mg/dL (74-99); Non-African American GFR(MDRD) >60 (>60 ml/min/1.73 sqM); Potassium 4.8 mmol/L (3.5-5.1); Sodium 139 mmol/L (137-145); Total Bilirubin 0.7 mg/dL (0.2-1.3); Total Protein 6.2 g/dL (6.3-8.2)
[2017-02-27] MEDS: MORPHINE SULFATE 4 MG/ML SYRINGE IV PRN (08:41)
[2017-02-27] MEDS: TAMSULOSIN 0.4 MG CAP.ER.24H PO SCH (08:53)
[2017-02-27] MEDS: SERTRALINE 50 MG TAB PO SCH (08:53)
[2017-02-27] MEDS: PANTOPRAZOLE 40 MG TABLET PO SCH (08:53)
[2017-02-27] MEDS: ALPRAZolam 0.5 MG TAB PO PRN ×2 (08:57→18:10)
--- NOTE | 2017-02-27 10:11 | P.PN ---
Subjective Patient presented with fever and severe chills. Patient has known pancreatic cancer with liver metastases. He has been undergoing chemotherapy. Patient's symptoms started after his chemotherapy treatment. He did have another low- grade temp last night of 100.5. He is complaining of some abdominal pain this morning. Computed tomography scan of the abdomen showing infiltrative process through the liver especially within the left lobe of the liver suspicious for underlying masses. Patient complaining of some nausea this morning. No vomiting. He did have a bowel movement yesterday that was loose as well as again this morning. Unfortunately they did not collect the stool for C. diff. Patient denies any chest pain or shortness of breath. Denies any difficulty urinating. Pain control pain meds. Objective - Vital Signs Vital signs: Vital Signs Temp 98.8 F 02/27/17 08:00 Pulse 76 02/27/17 08:00 Resp 18 02/27/17 08:00 BP 126/70 02/27/17 08:00 Pulse Ox 95 02/27/17 08:00 Intake & Output 02/26/17 02/27/17 02/27/17 18:59 06:59 18:59 Intake Total 700 1790 Output Total 300 Balance 700 1490 Weight 90.718 kg 92.9 kg 92.9 kg Intake: Intake, IV Titration 700 1550 Amount Cefepime 2 gm In Sodium 100 Chloride 0.9% 50 ml @ 100 mls/hr IVPB Q12H [facility] Rx# :[id number] Sodium Chloride 0.9% 1, 700 1200 000 ml @ 100 mls/hr IV . Q10H [facility] Rx#:[id number] Vancomycin 1,500 mg In 250 Sodium Chloride 0.9% 250 ml @ 125 mls/hr IVPB Q12H [facility] Rx#:[id number] Oral 240 Output: Urine 300 Other: # Voids 2 - Exam Head normocephalic Neck supple Lungs clear to auscultation bilaterally no wheezing or crackles Heart regular rate and rhythm S1-S2, no rub or gallop Abdomen is soft, nondistended, diffuse abdominal tenderness Extremities no edema Neuro alert and orientated to 3 - Labs CBC & Chem 7: 02/27/17 06:11 02/27/17 06:11 Labs: Abnormal Lab Results - Last 24 Hours (Table) 02/26/17 02/26/17 02/26/17 Range/Units 12:10 16:50 21:01 Lymphocytes # (1.0-4.8) k/uL Glucose (74-99) mg/dL POC Glucose (mg/dL) 151 H 107 H 122 H (75-99) mg/dL AST (17-59) U/L ALT (21-72) U/L Alkaline Phosphatase (38-126) U/L Total Protein (6.3-8.2) g/dL Albumin (3.5-5.0) g/dL 02/27/17 02/27/17 02/27/17 Range/Units 05:54 06:11 06:11 Lymphocytes # 0.5 L (1.0-4.8) k/uL Glucose 111 H (74-99) mg/dL POC Glucose (mg/dL) 102 H (75-99) mg/dL AST 78 H (17-59) U/L ALT 130 H (21-72) U/L Alkaline Phosphatase 204 H (38-126) U/L Total Protein 6.2 L (6.3-8.2) g/dL Albumin 3.0 L (3.5-5.0) g/dL Microbiology - Last 24 Hours (Table) 02/26/17 04:56 Urine Culture - Preliminary Urine,Voided Assessment and Plan Plan: 1. Abdominal pain with fever and sepsis present on admission: Initial blood culture shows no growth so far. Repeat blood culture pending Influenza screen negative. Urinalysis negative awaiting urine culture. Chest x-ray negative. Check stool for C. diff. Continue cefepime and IV vancomycin. Oncology following. CT showing infiltrative process through the liver especially on the left lobe suspicious for underlying mass 2. Sepsis present on admission: White count 11.4, temperature 103.8 and tachycardic. Continue with IV fluids. Await blood cultures. Continue antibiotics. 3. Recent diagnosis of pancreatic cancer with liver metastases: Oncology consulted. Patient had chemo treatment in office yesterday. Currently receiving continuous chemotherapy. Oncology planning to discontinue chemo pump today 4. History of DVT of the lower extremity: Continue Xarelto 5. History of diabetes mellitus type 2: Continue sliding scale coverage 6. Hypotension likely secondary to sepsis. Patient receiving IV fluids. Hold blood pressure medication. Blood pressures have shown improvement 7. History of essential hypertension: Lisinopril on hold for low BP 8. Generalized Anxiety disorder resume Xanax GI prophylaxis Protonix and DVT prophylaxis Xarelto Okay for patient to be transferred to regular medical floor
[2017-02-27] MEDS: clonazePAM 1 MG TAB PO PRN ×2 (10:29→13:17)
[2017-02-27 11:08] LABS: Glucose,Whole Blood 117 mg/dL (75-99)
[2017-02-27] MEDS: CEFEPIME 2 GM in SODIUM CHLORIDE 0.9% 50 ML IVPB SCH ×2 (13:00→23:40)
[2017-02-27] MEDS: HYDROcodone/APAP 10-325MG 1 EACH TAB PO PRN (13:17)
[2017-02-27] MEDS ORDERED: VANCOMYCIN TROUGH DUE 1 EACH MISC MISCELLANE ONE (15:00)
[2017-02-27 17:20] LABS: Glucose,Whole Blood 101 mg/dL (75-99)
--- NOTE | 2017-02-27 17:44 | P.PN ---
Subjective Principal diagnosis: sepsis the patient feels quite well. He has not had any recurrence of fever or chills. Hemodynamics are now normal Objective - Vital Signs Vital signs: Vital Signs Temp 98.6 F 02/27/17 16:00 Pulse 83 02/27/17 16:00 Resp 20 02/27/17 16:00 BP 135/71 02/27/17 16:00 Pulse Ox 97 02/27/17 16:00 Intake & Output 02/26/17 02/27/17 02/27/17 18:59 06:59 18:59 Intake Total 700 1790 750 Output Total 300 303 Balance 700 1490 447 Weight 90.718 kg 92.9 kg 92.9 kg Intake: Intake, IV Titration 700 1550 750 Amount Cefepime 2 gm In Sodium 100 50 Chloride 0.9% 50 ml @ 100 mls/hr IVPB Q12H [facility] Rx# :[id number] Sodium Chloride 0.9% 1, 700 1200 700 000 ml @ 100 mls/hr IV . Q10H [facility] Rx#:[id number] Vancomycin 1,500 mg In 250 Sodium Chloride 0.9% 250 ml @ 125 mls/hr IVPB Q12H [facility] Rx#:[id number] Oral 240 Output: Urine 300 300 Stool 3 Other: # Voids 2 2 - Constitutional General appearance: Present: no acute distress - EENT Eyes: Present: EOMI, PERRLA ENT: Present: hearing grossly normal, normal oropharynx - Respiratory Respiratory: bilateral: CTA - Cardiovascular Rhythm: regular Heart sounds: normal: S1, S2 - Gastrointestinal General gastrointestinal: Present: normal bowel sounds, soft - Integumentary Integumentary: Present: normal - Neurologic Neurologic: Present: CNII-XII intact - Musculoskeletal Musculoskeletal: Present: strength equal bilaterally - Psychiatric Psychiatric: Present: A&O x's 3, appropriate affect - Labs CBC & Chem 7: 02/27/17 06:11 02/27/17 06:11 Labs: Abnormal Lab Results - Last 24 Hours (Table) 02/26/17 02/27/17 02/27/17 Range/Units 21:01 05:54 06:11 Lymphocytes # (1.0-4.8) k/uL Glucose 111 H (74-99) mg/dL POC Glucose (mg/dL) 122 H 102 H (75-99) mg/dL AST 78 H (17-59) U/L ALT 130 H (21-72) U/L Alkaline Phosphatase 204 H (38-126) U/L Total Protein 6.2 L (6.3-8.2) g/dL Albumin 3.0 L (3.5-5.0) g/dL 02/27/17 02/27/17 02/27/17 Range/Units 06:11 11:05 17:19 Lymphocytes # 0.5 L (1.0-4.8) k/uL Glucose (74-99) mg/dL POC Glucose (mg/dL) 117 H 101 H (75-99) mg/dL AST (17-59) U/L ALT (21-72) U/L Alkaline Phosphatase (38-126) U/L Total Protein (6.3-8.2) g/dL Albumin (3.5-5.0) g/dL Microbiology - Last 24 Hours (Table) 02/26/17 04:56 Urine Culture - Final Urine,Voided Assessment and Plan (1) Sepsis Narrative/Plan: the clinical presentation was most suggestive of sepsis. The patient's fever has resolved and hemodynamics are now stable. Cultures are still negative. He continues on vancomycin and Zosyn. If cultures remain negative tomorrow, that is over 48 hours, and the patient is clinically doing well we can potentially discharge him on empiric oral antibiotics. He was advised that if cultures to turn positive, then we would have to wait on susceptibility before deciding on outpatient antibiotics Status: Acute (2) Pancreatic adenocarcinoma Narrative/Plan: he completed chemotherapy today. The pump was disconnected. He will follow- up in the office according to his previously scheduled appointment Status: Acute
[2017-02-27] MEDS: RIVAROXABAN 10 MG TAB PO SCH (17:54)
[2017-02-27 19:51] LABS: Glucose,Whole Blood 124 mg/dL (75-99)
[2017-02-27] MEDS: ZOLPIDEM 10 MG TAB PO PRN (23:30)
[2017-02-27 23:35] VITALS: RESP 16
[2017-02-28] MEDS: VANCOMYCIN 1,500 MG in SODIUM CHLORIDE 0.9% 250 ML IVPB SCH ×2 (00:18→10:03)
[2017-02-28] MEDS: clonazePAM 1 MG TAB PO PRN ×2 (03:09→11:18)
[2017-02-28] MEDS: SODIUM CHLORIDE 0.9% 1,000 ML IV SCH ×2 (04:19→15:18)
[2017-02-28] MEDS: SALT AND SODA MOUTHWASH 1,000 ML PO SCH ×2 (05:42→11:25)
[2017-02-28 07:30] LABS: Glucose,Whole Blood 100 mg/dL (75-99)
[2017-02-28 07:51] LABS: Basophils % (A) 0 %; CH 27.8; CHCM 32.3; Eosinophils # (A) 0.5 k/uL (0-0.7); Eosinophils % (A) 9 %; HCT 37.8 % (39.0-53.0); HDW 2.67; HGB 12.2 gm/dL (13.0-17.5); Luc # (Auto) 0.06; Luc % (Auto) 1; Lymphocytes % (A) 17 %; MCHC 32.4 g/dL (31.0-37.0); MCV 86.4 fL (80.0-100.0); Mean Platelet Volume 7.4; Monocytes # (A) 0.1 k/uL (0-1.0); Monocytes % (A) 2 %; Neutrophils # (A) 3.9 k/uL (1.3-7.7); Neutrophils % (A) 70 %; RBC 4.37 m/uL (4.30-5.90); RDW 13.9 % (11.5-15.5); WBC 5.6 k/uL (3.8-10.6)
[2017-02-28] MEDS: INSULIN LISPRO (humaLOG) 300 UNIT/3 ML VIAL SQ SCH ×2 (07:59→12:11)
[2017-02-28] MEDS: SERTRALINE 50 MG TAB PO SCH (08:01)
[2017-02-28] MEDS: PANTOPRAZOLE 40 MG TABLET PO SCH (08:01)
[2017-02-28] MEDS: TAMSULOSIN 0.4 MG CAP.ER.24H PO SCH (08:01)
[2017-02-28] MEDS: ALPRAZolam 0.5 MG TAB PO PRN (08:09)
[2017-02-28] MEDS: HYDROcodone/APAP 10-325MG 1 EACH TAB PO PRN (08:09)
[2017-02-28 08:10] LABS: ALT 81 U/L (21-72); AST 36 U/L (17-59); Alkaline Phosphatase 207 U/L (38-126); Anion Gap 9 mmol/L; Blood Urea Nitrogen 12 mg/dL (9-20); Carbon Dioxide 24 mmol/L (22-30); Chloride 106 mmol/L (98-107); Glucose 101 mg/dL (74-99); Non-African American GFR(MDRD) >60 (>60 ml/min/1.73 sqM); Potassium 4.5 mmol/L (3.5-5.1); Sodium 139 mmol/L (137-145); Total Bilirubin 0.7 mg/dL (0.2-1.3); Total Protein 6.2 g/dL (6.3-8.2)
--- NOTE | 2017-02-28 10:03 | P.PN ---
Subjective Principal diagnosis: sepsis. the patient feels well. Denies any nausea or vomiting. He has not had any recurrence of fever or chills. Appetite is fairly normal. Objective - Vital Signs Vital signs: Vital Signs Temp 98.2 F 02/28/17 09:51 Pulse 65 02/28/17 09:51 Resp 16 02/28/17 09:51 BP 122/79 02/28/17 09:51 Pulse Ox 96 02/28/17 03:12 Intake & Output 02/27/17 02/28/17 02/28/17 18:59 06:59 18:59 Intake Total 750 1515 Output Total 303 303 2 Balance 447 1212 -2 Weight 92.9 kg 93 kg Intake: Intake, IV Titration 750 925 Amount Cefepime 2 gm In Sodium 50 Chloride 0.9% 50 ml @ 100 mls/hr IVPB Q12H [facility] Rx# :[id number] Sodium Chloride 0.9% 1, 700 800 000 ml @ 100 mls/hr IV . Q10H [facility] Rx#:[id number] Vancomycin 1,500 mg In 125 Sodium Chloride 0.9% 250 ml @ 125 mls/hr IVPB Q8HR [facility] Rx#:[id number] Oral 590 Output: Urine 300 300 Stool 3 3 2 Other: # Voids 2 3 - Constitutional General appearance: Present: no acute distress - EENT Eyes: Present: PERRLA ENT: Present: hearing grossly normal, normal oropharynx - Respiratory Respiratory: bilateral: CTA - Cardiovascular Rhythm: regular Heart sounds: normal: S1, S2 - Gastrointestinal General gastrointestinal: Present: normal bowel sounds, soft - Integumentary Integumentary: Present: normal - Neurologic Neurologic: Present: CNII-XII intact - Musculoskeletal Musculoskeletal: Present: strength equal bilaterally - Psychiatric Psychiatric: Present: A&O x's 3, appropriate affect - Labs CBC & Chem 7: 02/28/17 06:40 02/28/17 06:40 Labs: Abnormal Lab Results - Last 24 Hours (Table) 02/27/17 02/27/17 02/27/17 Range/Units 11:05 17:19 19:50 Hgb (13.0-17.5) gm/dL Hct (39.0-53.0) % Plt Count (150-450) k/uL Glucose (74-99) mg/dL POC Glucose (mg/dL) 117 H 101 H 124 H (75-99) mg/dL ALT (21-72) U/L Alkaline Phosphatase (38-126) U/L Total Protein (6.3-8.2) g/dL Albumin (3.5-5.0) g/dL 02/28/17 02/28/17 02/28/17 Range/Units 06:40 06:40 07:25 Hgb 12.2 L (13.0-17.5) gm/dL Hct 37.8 L (39.0-53.0) % Plt Count 137 L (150-450) k/uL Glucose 101 H (74-99) mg/dL POC Glucose (mg/dL) 100 H (75-99) mg/dL ALT 81 H (21-72) U/L Alkaline Phosphatase 207 H (38-126) U/L Total Protein 6.2 L (6.3-8.2) g/dL Albumin 3.0 L (3.5-5.0) g/dL Microbiology - Last 24 Hours (Table) 02/26/17 04:56 Urine Culture - Final Urine,Voided Assessment and Plan (1) Sepsis Narrative/Plan: the patient is much improved, with no significant fever now 48 hours. Hemodynamics have also been stable during that period. Symptomatically he feels well. Cultures are negative so far. There is no obvious source of infection. At this time, from our standpoint the patient can be discharged home. We would recommend a broad-spectrum antibiotic empirically for the next 7 days. Defer to the admitting service as to the choice of antibiotics. Status: Acute (2) Pancreatic adenocarcinoma Narrative/Plan: the patient is completed cycle #2. He has a follow-up in the office scheduled , in the coming week. Status: Acute
[2017-02-28 11:58] LABS: Glucose,Whole Blood 104 mg/dL (75-99)
[2017-02-28] MEDS: CEFEPIME 2 GM in SODIUM CHLORIDE 0.9% 50 ML IVPB SCH (12:44)
--- NOTE | 2017-02-28 15:20 | P.DS ---
Providers Date of admission: 02/26/17 00:57 Expected date of discharge: 02/28/17 Attending physician: Martha Starkey Consults: 02/27/17 10:50 Consult Physician Routine Consulting Provider: Chris Becerril Consult Reason/Comments: Fever Do you want consulting provider notified?: Yes Primary care physician: Jazmin [facility] Course: 1. Abdominal pain with fever and sepsis present on admission: Initial blood culture shows no growth. Influenza screen negative. Urinalysis negative. Chest x-ray negative. CT showing infiltrative process through the liver especially on the left lobe suspicious for underlying mass. Patient will be discharged home with empiric antibiotic coverage 2. Sepsis present on admission 3. Recent diagnosis of pancreatic cancer with liver metastases: On chemotherapy , seen and evaluated by oncology 4. History of DVT of the lower extremity: Continue Xarelto 5. History of diabetes mellitus type 2: Continue sliding scale coverage 6. Hypotension likely secondary to sepsis. Patient receiving IV fluids. Hold blood pressure medication. Blood pressures have shown improvement 7. History of essential hypertension: Lisinopril on hold for low BP 8. Generalized Anxiety disorder resume Xanax Patient Condition at Discharge: Fair Plan - Discharge Summary New Discharge Prescriptions: Amoxic-Pot Clav 875-125Mg [Augmentin 875-125] 1 tab PO Q12HR #14 tablet Discharge Medication List Lisinopril 40 mg PO DAILY 06/12/16 [History] Omeprazole 20 mg PO DAILY 06/12/16 [History] Tamsulosin HCl [Flomax] 0.4 mg PO DAILY 01/04/17 [History] clonazePAM [KlonoPIN] 1 mg PO TID PRN 02/03/17 [History] ALPRAZolam [Xanax] 0.5 mg PO TID PRN 02/25/17 [History] Acetaminophen Tab [Tylenol] 650 mg PO ONCE 02/25/17 [History] Lidocaine-Prilocaine Cream [Emla Cream 2.5%/2.5%] 1 applic TOPICAL DAILY PRN 11/01 [History] Prochlorperazine [Compazine] 10 mg PO Q6H PRN 02/25/17 [History] Rivaroxaban [Xarelto] 20 mg PO DAILY 02/25/17 [History] Sertraline [Zoloft] 50 mg PO DAILY 02/25/17 [History] Zolpidem Tartrate [Ambien] 10 mg PO HS PRN 02/25/17 [History] diphenhydrAMINE HCL [Benadryl] 50 mg PO ONCE 02/25/17 [History] Amoxic-Pot Clav 875-125Mg [Augmentin 875-125] 1 tab PO Q12HR #14 tablet [Rx] Follow up Appointment(s)/Referral(s): Jazmin Marquis DO [Primary Care Provider] - 1-2 days Discharge Disposition: HOME SELF-CARE
--- NOTE | 2017-02-28 15:33 | CONS ---
DATE OF CONSULTATION: DATE OF SERVICE: 02/28/2017 REASON FOR CONSULTATION: Fever. HISTORY OF PRESENT ILLNESS: The patient is a 56-year-old male with a past medical history significant for pancreatic cancer diagnosed back in December for which the patient is getting chemotherapy through a right Mediport. Patient was brought into the ER on 02/25/2017 apparently after the patient started having a fever after chemotherapy. The patient did have a fever of 103 degrees Fahrenheit on arrival to Dr. Amaya's office as well as arrival to the ER. He did have elevated white count at 11.4. The patient did have evidence of tachycardia with heart rate of 129. The patient did match criteria for sepsis. The patient's lactic acid though was normal. The patient did have a workup done in the ER including a chest x-ray that was reported negative for any pneumonia. He did have a CT of abdomen and pelvis that has been suggestive of infiltrative process through the liver especially within the left lobe suspicious for underlying masses and some hepatic cysts. The patient did have elevated white count on admission of 11.4, however, his white count has been normal for the last 3 days. His blood pressure remains to be negative. I was asked to see the patient last evening for further recommendation regarding antibiotic therapy. Patient at this time this morning is feeling better. The patient denies having any headache. Denies having any URI symptom. Denies having any chest pain, shortness of breath or cough. Has mild epigastric area pain which attributing to his pancreatic cancer. No nausea or vomiting. No significant diarrhea. REVIEW OF SYSTEMS: CONSTITUTIONAL: Positive for weakness and fever that has resolved. EYES: No complaint. ENT: No complaint. RESPIRATORY: No complaint. CARDIOVASCULAR: No complaint. GENITOURINARY: No complaint. GASTROINTESTINAL: As per HPI. MUSCULOSKELETAL: No complaint. INTEGUMENTARY: No complaint. PSYCHOLOGICAL: No complaint. ENDOCRINE: No complaint. NEUROLOGIC: No complaint. Past medical history significant for diabetes mellitus, DVT, gastroesophageal reflux disease, hypertension, hyperlipidemia, memory impairment, pneumonia, sleep apnea, pancreatic cancer with metastasis to the liver. PAST SURGICAL HISTORY: Hernia repair, knee arthroscopy, EGD, colonoscopy. SOCIAL HISTORY: Remote history of smoking; quit 20 years ago. Denies any drinking or any drug use. FAMILY HISTORY: Both parents had history of cancer. Allergies to NITROGLYCERIN. Medications currently include the patient is on Tylenol, [place], Xanax, cefepime 2 grams q.12, Klonopin Humalog, morphine sulfate, Zofran, Protonix, Compazine, Xarelto, Zoloft, Flomax and vancomycin. On examination, blood pressure is 126/79 with a pulse of 69, temperature 98.1. He is 94% on room air. General description is a middle-aged male, lying in bed in no distress. No tachypnea or accessory muscle of respiration use. HEENT EXAMINATION: No pallor or scleral icterus. Oral mucosal membranes dry. NECK: Trachea central. There is no thyromegaly. LUNGS: Unlabored breathing. Clear to auscultation anteriorly. HEART: S1, S2, regular rate and rhythm. ABDOMEN: Soft, no tenderness. No guarding or rigidity. EXTREMITIES: No edema of the feet. SKIN EXAMINATION: No rash or mass palpable. NEUROLOGICAL: The patient is awake, alert, oriented x3. Mood and affect normal. LABS: Hemoglobin is 12.2, white count 5.6 on admission was 11.4 with a BUN of 12 and creatinine 0.67. Electrolytes have been normal. ALT and alk phos were slightly elevated. Urine is negative. Serology influenza A and B were negative. Chest x-ray reported to be negative. CT of abdomen and pelvis report as mentioned above. DIAGNOSTIC IMPRESSION AND PLAN: Patient admitted to hospital with sepsis in a patient with no clear focus of infection. The patient did have extensive workup and all the workup for infectious etiology is negative. All his cultures are negative and the patient has been afebrile for more than 48 hours now. Patient currently feeling fine and really insisting on going home. PLAN: 1. Will give a short course of oral antibiotic in the form of Augmentin 875 b.i.d. for about a week. 2. Patient had been advised if any recurrence of a fever or any pain to call us. Thank you for this consultation.
[2017-02-28 16:18] VITALS: BP 134/87; PULSE 77; TEMP 98.3
== END 2017-02-28 16:25 | disposition home or self-care (01) | DRG 872 ==
LOC: EC 21:41 → 6SEL 02-26 00:57 → 5ONC 02-27 09:33
PROVIDERS: ADMIT Internal Medicine; ATTEND Internal Medicine
DX: A41.9 Sepsis, unspecified organism (principal); C25.9 Malignant neoplasm of pancreas, unspecified; C78.7 Secondary malignant neoplasm of liver and intrahepatic bile duct; E11.9 Type 2 diabetes mellitus without complications; I10 Essential (primary) hypertension; K21.9 Gastro-esophageal reflux disease without esophagitis; F32.9 Major depressive disorder, single episode, unspecified; E78.5 Hyperlipidemia, unspecified; G47.33 Obstructive sleep apnea (adult) (pediatric); F41.1 Generalized anxiety disorder; Z87.01 Personal history of pneumonia (recurrent); Z92.21 Personal history of antineoplastic chemotherapy; Z86.718 Personal history of other venous thrombosis and embolism; Z87.891 Personal history of nicotine dependence; Z79.01 Long term (current) use of anticoagulants; Z79.899 Other long term (current) drug therapy
CPT/HCPCS: 36415; 71020; 74177; 80053; 80202; 81001; 82550; 82553; 83036; 83605; 83690; 83735; 84100; 84484; 85025; 85610; 85730; 87040; 87086; 87502; 93005; 96375; 96376

== ENCOUNTER 2017-03-27 09:30 | Emergency (ER) | payer MEDICARE, BC ==
[2017-03-27] MEDS ORDERED: MORPHINE SULFATE 4 MG/ML SYRINGE IVP STA (10:10)
[2017-03-27] MEDS ORDERED: ONDANSETRON 4 MG/2 ML VIAL IVP STA (10:10)
[2017-03-27] MEDS ORDERED: SODIUM CHLORIDE 0.9% 1,000 ML IV ONE (10:10)
[2017-03-27 10:30] LABS: Basophils % (A) 1 %; CH 27.6; CHCM 33.4; Eosinophils # (A) 0.4 k/uL (0-0.7); Eosinophils % (A) 6 %; HCT 42.1 % (39.0-53.0); HDW 3.01; HGB 14.1 gm/dL (13.0-17.5); Luc # (Auto) 0.17; Luc % (Auto) 3; Lymphocytes # (A) 0.7 k/uL (1.0-4.8); Lymphocytes % (A) 11 %; MCH 27.7 pg (25.0-35.0); MCHC 33.4 g/dL (31.0-37.0); Mean Platelet Volume 7.6; Monocytes # (A) 0.2 k/uL (0-1.0); Monocytes % (A) 4 %; Neutrophils # (A) 4.5 k/uL (1.3-7.7); Neutrophils % (A) 76 %; RBC 5.07 m/uL (4.30-5.90); RDW 15.8 % (11.5-15.5); WBC (Perox) 5.82
[2017-03-27 10:40] LABS: ALT 48 U/L (21-72); AST 44 U/L (17-59); Alkaline Phosphatase 292 U/L (38-126); Amylase 43 U/L (30-110); Anion Gap 11 mmol/L; Blood Urea Nitrogen 15 mg/dL (9-20); Calcium 9.1 mg/dL (8.4-10.2); Carbon Dioxide 24 mmol/L (22-30); Chloride 100 mmol/L (98-107); Glucose 119 mg/dL (74-99); Magnesium 1.8 mg/dL (1.6-2.3); Non-African American GFR(MDRD) >60 (>60 ml/min/1.73 sqM); Potassium 4.5 mmol/L (3.5-5.1); Sodium 135 mmol/L (137-145); Total Bilirubin 1.2 mg/dL (0.2-1.3); Total Protein 7.6 g/dL (6.3-8.2)
--- NOTE | 2017-03-27 11:00 | ED ---
General Adult HPI - General Chief complaint: Abdominal Pain Stated complaint: abdominal pain Time Seen by Provider: 03/27/17 09:51 Source: patient, RN notes reviewed Mode of arrival: wheelchair Limitations: no limitations - History of Present Illness Initial comments: Patient is a 56-year-old male presents emergency room for evaluation of abdominal pain and vomiting. Patient is currently being treated for stage IV pancreatic cancer. Patient states just finished his fourth round of chemotherapy. Patient states began having a worsening left upper quadrant pain over the past few days. Patient states the pain is causing him to be very nauseous and vomit. Patient states he is unable to take any of his medications at home due to this. Patient states he is currently having 7 out of 10 constant pain. Patient states he did take [place] at home for pain. Patient denies diarrhea constipation. Patient denies fevers or chills. Patient denies chest pain or shortness of breath. Denies headache or dizziness. - Related Data Home Medications Medication Instructions Recorded Confirmed Lisinopril 40 mg PO DAILY 06/12/16 03/27/17 Omeprazole 20 mg PO DAILY 06/12/16 03/27/17 Tamsulosin HCl [Flomax] 0.4 mg PO DAILY 01/04/17 03/27/17 clonazePAM [KlonoPIN] 1 mg PO TID PRN 02/03/17 03/27/17 ALPRAZolam [Xanax] 0.5 mg PO TID PRN 02/25/17 03/27/17 Prochlorperazine [Compazine] 10 mg PO Q6H PRN 02/25/17 03/27/17 Rivaroxaban [Xarelto] 20 mg PO DAILY 02/25/17 03/27/17 Sertraline [Zoloft] 50 mg PO DAILY 02/25/17 03/27/17 Zolpidem Tartrate [Ambien] 10 mg PO HS PRN 02/25/17 03/27/17 Baclofen [Lioresal] 10 mg PO DAILY PRN 03/27/17 03/27/17 HYDROcodone/APAP 7.5-325MG [[place] 1 tab PO Q6HR PRN 03/27/17 03/27/17 7.5-325] Lipase/Protease/Amylase [Creon Dr 1 cap PO TID PRN 03/27/17 03/27/17 12,000 Units Capsule] traMADol HCL [Ultram] 50 mg PO Q6H PRN 03/27/17 03/27/17 Allergies Allergy/AdvReac Type Severity Reaction Status Date / Time nitroglycerin AdvReac Rapid Verified 03/27/17 10:39 [From Nitrostat] Heart Rate Review of Systems ROS Statement: Those systems with pertinent positive or pertinent negative responses have been documented in the HPI. ROS Other: All systems not noted in ROS Statement are negative. Past Medical History Past Medical History: Cancer, Diabetes Mellitus, Deep Vein Thrombosis (DVT), GERD/Reflux, Hyperlipidemia, Hypertension, Memory Impairment, Pneumonia, Sleep Apnea/CPAP/BIPAP Additional Past Medical History / Comment(s): C-PAP MACHINE, HOSPITALIZED 01/04- AT [facility] FOR PNEUMONIA, AND DIAGNOSIS OF PANCREATIC CANCER METASTASIZED TO THE LIVER .PT AND HIS SAID HE HAD A DVT IN HIS LEG ALSO . History of Any Multi-Drug Resistant Organisms: None Reported Past Surgical History: Hernia Repair, Orthopedic Surgery Additional Past Surgical History / Comment(s): arthroscopy knee, EGD, colonoscopy Past Anesthesia/Blood Transfusion Reactions: No Reported Reaction Past Psychological History: Anxiety, Depression Smoking Status: Former smoker Past Alcohol Use History: Occasional Additional Past Alcohol Use History / Comment(s): quit smoking 20 yrs ago, smoked 1-2 ppd for 20 yrs. Past Drug Use History: None Reported - Past Family History Mother Family Medical History: Cancer Father Family Medical History: Cancer General Exam - General Exam Comments Initial Comments: Laying in exam room, no acute distress. Limitations: no limitations General appearance: alert, in no apparent distress Head exam: Present: atraumatic, normocephalic, normal inspection Eye exam: Present: normal appearance ENT exam: Present: normal exam Neck exam: Present: normal inspection Respiratory exam: Present: normal lung sounds bilaterally. Absent: respiratory distress Cardiovascular Exam: Present: regular rate, normal rhythm, normal heart sounds GI/Abdominal exam: Present: soft, tenderness (Left upper quadrant), normal bowel sounds. Absent: distended, guarding, rebound, rigid Extremities exam: Present: normal inspection Back exam: Present: normal inspection Neurological exam: Present: alert, oriented X3, CN II-XII intact, normal gait Psychiatric exam: Present: normal affect, normal mood Skin exam: Present: warm, dry, intact, normal color. Absent: rash Course Vital Signs 03/27/17 03/27/17 03/27/17 09:34 11:15 11:48 Temperature 98.2 F 98.3 F 97.6 F Pulse Rate 102 H 70 73 Respiratory 20 16 18 Rate Blood Pressure 140/73 163/92 113/68 O2 Sat by Pulse 98 99 Oximetry 03/27/17 13:02 Temperature 98.0 F Pulse Rate 70 Respiratory 18 Rate Blood Pressure 118/68 O2 Sat by Pulse Oximetry Medical Decision Making - Medical Decision Making patient is a 56-year-old male with a history of stage IV pancreatitis with metastases to liver presents the emergency room for evaluation of increasing abdominal pain and nausea. Patient's symptoms relieved with pain medications and antinausea medications. Patient states he is feeling better and would like to be discharged home. Case discussed with Dr. Clifton. Return parameters discussed. - Lab Data Result diagrams: 03/27/17 09:52 03/27/17 09:52 Lab Results 03/27/17 03/27/17 03/27/17 Range/Units 09:52 09:52 09:52 WBC 6.0 (3.8-10.6) k/uL RBC 5.07 (4.30-5.90) m/uL Hgb 14.1 (13.0-17.5) gm/dL Hct 42.1 (39.0-53.0) % MCV 83.0 (80.0-100.0) fL MCH 27.7 (25.0-35.0) pg MCHC 33.4 (31.0-37.0) g/dL RDW 15.8 H (11.5-15.5) % Plt Count 137 L (150-450) k/uL Neutrophils % 76 % Lymphocytes % 11 % Monocytes % 4 % Eosinophils % 6 % Basophils % 1 % Neutrophils # 4.5 (1.3-7.7) k/uL Lymphocytes # 0.7 L (1.0-4.8) k/uL Monocytes # 0.2 (0-1.0) k/uL Eosinophils # 0.4 (0-0.7) k/uL Basophils # 0.0 (0-0.2) k/uL Sodium 135 L (137-145) mmol/L Potassium 4.5 (3.5-5.1) mmol/L Chloride 100 (98-107) mmol/L Carbon Dioxide 24 (22-30) mmol/L Anion Gap 11 mmol/L BUN 15 (9-20) mg/dL Creatinine 0.67 (0.66-1.25) mg/dL Est GFR (MDRD) Af Amer >60 (>60 ml/min/1.73 sqM) Est GFR (MDRD) Non-Af >60 (>60 ml/min/1.73 sqM) Glucose 119 H (74-99) mg/dL Calcium 9.1 (8.4-10.2) mg/dL Magnesium 1.8 (1.6-2.3) mg/dL Total Bilirubin 1.2 (0.2-1.3) mg/dL AST 44 (17-59) U/L ALT 48 (21-72) U/L Alkaline Phosphatase 292 H (38-126) U/L Total Protein 7.6 (6.3-8.2) g/dL Albumin 3.6 (3.5-5.0) g/dL Amylase 43 (30-110) U/L Lipase 39 (23-300) U/L - Radiology Data Radiology results: report reviewed, image reviewed Disposition Clinical Impression: Abdominal pain, Pancreatic cancer Disposition: HOME SELF-CARE Condition: Good Instructions: Abdominal Pain (ED) Additional Instructions: Please follow up with primary care provider or oncologist. If any new symptom arises or symptoms worsen, return to ER as soon as possible. Referrals: Jazmin Marquis DO [Primary Care Provider] - 1-2 days Time of Disposition: 13:27
[2017-03-27 11:49] VITALS: RESP 18
--- NOTE | 2017-03-27 12:10 | XR ---
EXAMINATION TYPE: XR KUB DATE OF EXAM: 03/27/2017 12:06 PM COMPARISON: NONE HISTORY: Pain TECHNIQUE: Single supine KUB image of the abdomen is obtained FINDINGS: Small bowel demonstrates no evidence for dilatation or air fluid levels. Gas and fecal material is seen in non-distended colon. No convincing evidence for pneumoperitoneum. No unusual calcifications. The lung bases are clear. The osseous structures are intact. IMPRESSION: 1. Overall nonobstructive bowel gas pattern.
[2017-03-27 13:03] VITALS: BP 118/68; PULSE 70; TEMP 98
== END 2017-03-27 13:32 | disposition home or self-care (01) ==
LOC: EC 09:30
DX: R10.12 Left upper quadrant pain (principal); C25.9 Malignant neoplasm of pancreas, unspecified; C78.7 Secondary malignant neoplasm of liver and intrahepatic bile duct; R11.2 Nausea with vomiting, unspecified; I10 Essential (primary) hypertension; K21.9 Gastro-esophageal reflux disease without esophagitis; F41.9 Anxiety disorder, unspecified; F32.9 Major depressive disorder, single episode, unspecified; I82.402 Acute embolism and thrombosis of unspecified deep veins of left lower extremity; Z87.891 Personal history of nicotine dependence; Z79.01 Long term (current) use of anticoagulants; Z79.899 Other long term (current) drug therapy; Z88.8 Allergy status to other drugs, medicaments and biological substances
CPT/HCPCS: 99284; 96374; 96375; 96361; 36415; 80053; 82150; 83690; 83735; 85025; 74000; J2270; J2405

== ENCOUNTER 2017-05-05 16:59 | Emergency (ER) | payer MEDICARE, BC ==
[2017-05-05 17:18] VITALS: TEMP 97.4
[2017-05-05] MEDS ORDERED: SODIUM CHLORIDE 0.9% 1,000 ML IV STA ×2 (18:11→19:01)
[2017-05-05] MEDS ORDERED: METOCLOPRAMIDE 5 MG/ML 2 ML VIAL IVP STA (18:13)
--- NOTE | 2017-05-05 18:16 | ED ---
General Adult HPI - General Chief complaint: Weakness Stated complaint: Weakness Time Seen by Provider: 05/05/17 17:46 Source: patient, family, RN notes reviewed Mode of arrival: EMS Limitations: no limitations - History of Present Illness Initial comments: Patient is a pleasant 56-year-old male returning to the emergency department with generalized weakness. Symptoms have been persistent over the past few days. Patient has had several near-syncopal episodes. Patient feels weak all over. Family is concerned that he could be dehydrated. Patient was recently in [place] and just came home today because he did not want to go to the hospital there. Patient does not want to be admitted. Patient has known stage IV pancreatic cancer that they believe has failed chemotherapy. Patient has had back up so the past couple of days - Related Data Home Medications Medication Instructions Recorded Confirmed Lisinopril 40 mg PO DAILY 06/12/16 05/05/17 Omeprazole 20 mg PO DAILY 06/12/16 05/05/17 Tamsulosin HCl [Flomax] 0.4 mg PO DAILY 01/04/17 05/05/17 clonazePAM [KlonoPIN] 1 mg PO TID PRN 02/03/17 05/05/17 Prochlorperazine [Compazine] 10 mg PO Q6H PRN 02/25/17 05/05/17 Rivaroxaban [Xarelto] 20 mg PO DAILY 02/25/17 05/05/17 Sertraline [Zoloft] 50 mg PO DAILY 02/25/17 05/05/17 Lipase/Protease/Amylase [Creon Dr 1 cap PO AC-TID 03/27/17 05/05/17 12,000 Units Capsule] Baclofen [Lioresal] 20 mg PO HS PRN 05/05/17 05/05/17 HYDROcodone/APAP 10-325MG [[place] 1 tab PO Q4HR PRN 05/05/17 05/05/17 10-325] fentaNYL 25MCG/HR PATCH [Duragesic 1 patch TRANSDERM Q72H 05/05/17 05/05/17 25MCG/HR] traZODone HCL [Desyrel] 100 mg PO HS PRN 05/05/17 05/05/17 Allergies Allergy/AdvReac Type Severity Reaction Status Date / Time nitroglycerin AdvReac Rapid Verified 05/05/17 17:18 [From Nitrostat] Heart Rate Review of Systems ROS Statement: Those systems with pertinent positive or pertinent negative responses have been documented in the HPI. ROS Other: All systems not noted in ROS Statement are negative. Constitutional: Denies: fever Eyes: Denies: eye pain ENT: Denies: ear pain Respiratory: Denies: cough Cardiovascular: Denies: chest pain Endocrine: Reports: fatigue Gastrointestinal: Denies: abdominal pain Genitourinary: Denies: dysuria Musculoskeletal: Denies: back pain Skin: Denies: lesions Neurological: Reports: weakness (Generalized) Past Medical History Past Medical History: Cancer, Diabetes Mellitus, Deep Vein Thrombosis (DVT), GERD/Reflux, Hyperlipidemia, Hypertension, Memory Impairment, Pneumonia, Sleep Apnea/CPAP/BIPAP Additional Past Medical History / Comment(s): C-PAP MACHINE, HOSPITALIZED 01/04- AT [facility] FOR PNEUMONIA, AND DIAGNOSIS OF PANCREATIC CANCER METASTASIZED TO THE LIVER .PT AND HIS SAID HE HAD A DVT IN HIS LEG ALSO . History of Any Multi-Drug Resistant Organisms: None Reported Past Surgical History: Hernia Repair, Orthopedic Surgery Additional Past Surgical History / Comment(s): arthroscopy knee, EGD, colonoscopy Past Anesthesia/Blood Transfusion Reactions: No Reported Reaction Past Psychological History: Anxiety, Depression Smoking Status: Former smoker Past Alcohol Use History: Occasional Past Drug Use History: None Reported - Past Family History Mother Family Medical History: Cancer Father Family Medical History: Cancer General Exam Limitations: no limitations General appearance: alert, in no apparent distress Head exam: Present: other (Nasal abrasion that patient states was from a fall) Eye exam: Present: other ([place] conjunctiva) ENT exam: Present: normal oropharynx Neck exam: Present: normal inspection Respiratory exam: Present: normal lung sounds bilaterally Cardiovascular Exam: Present: regular rate, normal rhythm GI/Abdominal exam: Present: soft. Absent: tenderness Extremities exam: Present: normal inspection Neurological exam: Present: alert Psychiatric exam: Present: normal affect, normal mood Skin exam: Present: normal color Course Vital Signs 05/05/17 05/05/17 05/05/17 17:14 17:30 17:45 Temperature 97.4 F L Pulse Rate 114 H 106 H Respiratory 20 16 Rate Blood Pressure 78/48 82/49 82/51 O2 Sat by Pulse 98 Oximetry 05/05/17 05/05/17 05/05/17 18:05 18:26 19:48 Temperature Pulse Rate 104 H 107 H Respiratory 16 16 Rate Blood Pressure 90/53 93/55 121/56 O2 Sat by Pulse 97 98 Oximetry 05/05/17 20:00 Temperature Pulse Rate Respiratory Rate Blood Pressure 87/52 O2 Sat by Pulse Oximetry - Reevaluation(s) Reevaluation #1: 05/05/17 18:14 Patient refuses computed tomography scan of the brain. Medical Decision Making - Medical Decision Making Patient reexamined and feels much better. Blood pressure remains low. Patient is advised for admission secondary to hypotension as well as dehydration and hyponatremia. Patient states he feels much better and refuses admission. Patient does request discharge. Patient does demonstrate medical decision making. - Lab Data Result diagrams: 05/05/17 17:33 05/05/17 17:33 Lab Results 05/05/17 05/05/17 05/05/17 Range/Units 17:33 17:33 19:42 WBC 8.9 (3.8-10.6) k/uL RBC 4.09 L (4.30-5.90) m/uL Hgb 11.5 L (13.0-17.5) gm/dL Hct 35.6 L (39.0-53.0) % MCV 87.1 (80.0-100.0) fL MCH 28.2 (25.0-35.0) pg MCHC 32.4 (31.0-37.0) g/dL RDW 19.3 H (11.5-15.5) % Plt Count 237 (150-450) k/uL Neutrophils % 70 % Lymphocytes % 14 % Monocytes % 11 % Eosinophils % 1 % Basophils % 0 % Neutrophils # 6.2 (1.3-7.7) k/uL Lymphocytes # 1.2 (1.0-4.8) k/uL Monocytes # 1.0 (0-1.0) k/uL Eosinophils # 0.0 (0-0.7) k/uL Basophils # 0.0 (0-0.2) k/uL Manual Slide Review Performed Reactive Lymphocytes Present Anisocytosis Slight Sodium 126 L (137-145) mmol/L Potassium 6.1 H (3.5-5.1) mmol/L Chloride 96 L (98-107) mmol/L Carbon Dioxide 17 L (22-30) mmol/L Anion Gap 13 mmol/L BUN 61 H (9-20) mg/dL Creatinine 3.50 H (0.66-1.25) mg/dL Est GFR (MDRD) Af Amer 22 (>60 ml/min/1.73 sqM) Est GFR (MDRD) Non-Af 18 (>60 ml/min/1.73 sqM) Glucose 116 H (74-99) mg/dL Calcium 8.5 (8.4-10.2) mg/dL Magnesium 2.1 (1.6-2.3) mg/dL Total Bilirubin 0.9 (0.2-1.3) mg/dL AST 69 H (17-59) U/L ALT 41 (21-72) U/L Alkaline Phosphatase 302 H (38-126) U/L Total Protein 6.3 (6.3-8.2) g/dL Albumin 2.6 L (3.5-5.0) g/dL Urine Color Dark Yellow Urine Appearance Cloudy (Clear) Urine pH 5.0 (5.0-8.0) Ur Specific [place] 1.021 (1.001-1.035) Urine Protein 1+ H (Negative) Urine Glucose (UA) Negative (Negative) Urine Ketones Negative (Negative) Urine Blood Negative (Negative) Urine Nitrite Negative (Negative) Urine Bilirubin 1+ H (Negative) Urine Urobilinogen 6.0 (<2.0) mg/dL Ur Leukocyte Esterase Negative (Negative) Urine RBC 3 (0-5) /hpf Urine WBC 6 H (0-5) /hpf Urine Bacteria Rare H (None) /hpf Hyaline Casts 89 H (0-2) /lpf Urine Mucus Occasional H (None) /hpf - Radiology Data Radiology results: image reviewed (Chest x-ray shows atelectasis) Disposition Clinical Impression: Dehydration, Hypotension, Hyponatremia Disposition: HOME SELF-CARE Instructions: Dehydration (ED), Hyponatremia (ED), Hypotension (ED) Additional Instructions: Please follow-up with your oncologist tomorrow. Consider hospice care as discussed. Return for increased weakness, worsening symptoms or other concerns. Referrals: Jazmin Marquis DO [Primary Care Provider] - 1-2 days Time of Disposition: 20:29
[2017-05-05 18:41] LABS: Anisocytosis Slight; Basophils % (A) 0 %; CH 28.8; CHCM 33.2; Eosinophils % (A) 1 %; HCT 35.6 % (39.0-53.0); HDW 3.11; HGB 11.5 gm/dL (13.0-17.5); Luc # (Auto) 0.47; Luc % (Auto) 5; Lymphocytes # (A) 1.2 k/uL (1.0-4.8); Lymphocytes % (A) 14 %; MCH 28.2 pg (25.0-35.0); MCHC 32.4 g/dL (31.0-37.0); MCV 87.1 fL (80.0-100.0); Monocytes % (A) 11 %; Neutrophils # (A) 6.2 k/uL (1.3-7.7); Neutrophils % (A) 70 %; RBC 4.09 m/uL (4.30-5.90); RDW 19.3 % (11.5-15.5); WBC 8.9 k/uL (3.8-10.6); WBC (Perox) 8.99
[2017-05-05 18:47] LABS: Calcium 8.5 mg/dL (8.4-10.2); Magnesium 2.1 mg/dL (1.6-2.3); Potassium 6.1 mmol/L (3.5-5.1); Total Bilirubin 0.9 mg/dL (0.2-1.3); Total Protein 6.3 g/dL (6.3-8.2)
--- NOTE | 2017-05-05 18:50 | XR ---
EXAMINATION TYPE: XR chest 2V DATE OF EXAM: 05/05/2017 COMPARISON: 02/25/2017 HISTORY: Weakness TECHNIQUE: Frontal and lateral views of the chest are obtained. FINDINGS: There is some atelectasis in the left midlung. Heart and mediastinum are normal. There is no pleural effusion. There are chest leads. There is a right central venous catheter with tip in the superior vena cava. IMPRESSION: There is left-sided atelectasis that is a changing atelectasis pattern compared to last exam. Normal heart. No heart failure.
[2017-05-05 20:03] LABS: Appearance,Urine Cloudy (Clear); Bacteria,Urine Rare /hpf; Bilirubin,Urine 1+ (Negative); Glucose,Urine (UA) Negative (Negative); Ketones,Urine Negative (Negative); Leukocyte Esterase,Urine Negative (Negative); Mucus,Urine Occasional /hpf; Nitrite,Urine Negative (Negative); Particle Count 14537; Protein,Urine 1+ (Negative); RBC,Urine 3 /hpf (0-5); Specific Gravity,Urine 1.021 (1.001-1.035); UA Billing (MACRO vs. MICRO) MICRO; WBC,Urine 6 /hpf (0-5)
[2017-05-05 20:18] LABS: Manual Review Performed; Reactive Lymphocytes Present
[2017-05-05 20:44] VITALS: BP 88/50; PULSE 118; RESP 17
== END 2017-05-05 20:44 | disposition home or self-care (01) ==
LOC: EC 16:59
DX: S00.31XA Abrasion of nose, initial encounter (principal); I95.9 Hypotension, unspecified; E87.1 Hypo-osmolality and hyponatremia; E86.0 Dehydration; E78.5 Hyperlipidemia, unspecified; K21.9 Gastro-esophageal reflux disease without esophagitis; F32.9 Major depressive disorder, single episode, unspecified; F41.9 Anxiety disorder, unspecified; Z87.891 Personal history of nicotine dependence; Z79.01 Long term (current) use of anticoagulants; Z79.899 Other long term (current) drug therapy; Z88.8 Allergy status to other drugs, medicaments and biological substances; Z86.718 Personal history of other venous thrombosis and embolism; Z85.07 Personal history of malignant neoplasm of pancreas; W18.30XA Fall on same level, unspecified, initial encounter
CPT/HCPCS: 99285; 36415; 80053; 83735; 85025; 81001; 71020; J2765